=== PATIENT | female | born 1965 | race Caucasian/White ===

== ENCOUNTER → 2018-07-24 09:50 | Outpatient (CLI) | payer BC, SELFPAY ==
[2018-07-24 12:03] LABS: Absolute Neutrophil Count 3.1 X10^3/uL (2.0-7.7); Basophil# 0.02 X10^3/uL; Basophil% 0.4 % (0-1); Eosinophil# 0.11 X10^3/uL; Eosinophils% 2.2 % (0-5); Hematocrit 40.1 % (37-47); Hemoglobin 13.3 g/dl (12.0-15.0); Lymphocyte % 25.7 % (19-41); Mean Corp Hgb Conc 33.2 g/gl (32-36); Mean Corpuscular Hgb 28.8 pg (27.0-32.0); Mean Corpuscular Volume 86.8 fL (81-99); Monocyte# 0.48 X10^3/uL; Monocyte% 9.5 % (0-10); Neutrophil # 3.14 X10^3/uL (2.7-7.7); Neutrophil % 62.2 % (47-70); Platelet Count 181 K/mm3 (150-450); RBC Distribution Width CV 13.1 % (11.6-14.6); RBC Distribution Width SD 40.7 fl (35.1-43.9); Red Blood Count 4.62 M/mm3 (4.2-5.4); White Blood Count 5.1 K/mm3 (4.4-11.0)
[2018-07-24 12:07] LABS: POSITIVE COUNT NO; POSITIVE DIFFERENTIAL NO; POSITIVE MORPHOLOGY NO
[2018-07-24 12:36] LABS: ALB/GLOB Ratio 1.1 RATIO (0.9-2.4); AST(SGOT) 17 U/L (15-37); Alanine Aminotransfer ALT/SGPT 25 U/L (13-56); Alkaline Phosphatase 87 U/L (45-117); Anion Gap 8 (5-15); BUN 19 mg/dL (7-18); BUN/Creat Ratio 26.5 RATIO (10-20); Calcium,Total 9.1 mg/dL (8.5-10.1); Chloride 108 mmol/L (98-107); Creatinine, Serum 0.72 mg/dL (0.55-1.02); EST Glomerular Filtration Rate 91 mL/min (>60); Est Glom Filt Rate - Afr Amer 111 mL/min (>60); Globulin 3.7 g/dL (2.2-4.2); Glucose 89 mg/dL (74-106); Protein, Total 7.7 g/dL (6.4-8.2); Sodium Level 142 mmol/L (136-145); Thyroid Stim Hormone (TSH) 0.49 uIU/mL (0.358-3.74)
== END ==
PROVIDERS: Family Provider Family Medicine; PCP Family Medicine; Visit Provider Family Medicine
DX: R55 Syncope and collapse (principal)
CPT/HCPCS: 36415; 80053; 84443; 85025

== ENCOUNTER 2018-09-07 22:22 | Emergency (ER) | payer BC, SELFPAY ==
[2018-09-07 22:23] VITALS: BP 169/92; PULSE 72; RESP 15; TEMP 36.6; O2SAT 97; BMI 24.0
--- NOTE | 2018-09-07 23:13 | EKG12_ITS ---
Test Reason : DIZZINESS Blood Pressure : / mmHG Vent. Rate : 062 BPM Atrial Rate : 062 BPM P-R Int : 136 ms QRS Dur : 096 ms QT Int : 418 ms P-R-T Axes : 051 056 054 degrees QTc Int : 424 ms Normal sinus rhythm Nonspecific ST abnormality Abnormal ECG Confirmed by LELIA ROWELL, LIATH ([id number]), order editor ROJELIO ESPANA ([id number]) on 09/10/2018 1:39:23 PM Referred By: WILLIAN Confirmed By:LAITH ROWELL MD
--- NOTE | 2018-09-07 23:13 | CT_ITS ---
STUDY: CT BRAIN WITHOUT CONTRAST REASON FOR EXAM: Female, 52 years old. Dizziness. Tunnel vision. History of vertigo. Numbness and tingling in both hands. RADIATION DOSAGE (If Supplied By Facility): CTDIvol = ( 44.99 ) mGy, DLP = ( 745.49 ) mGycm TECHNIQUE: Transaxial CT imaging of the brain was performed without administration of intravenous contrast material. Individualized dose optimization techniques were used for this CT. COMPARISON: None. FINDINGS: Normal soft tissue structures. Normal calvarium. Normal size ventricles and extra-axial spaces for the patient's age. There are areas of decreased attenuation within the white matter tracts of the supratentorial brain, consistent with microvascular disease changes. There are discrete low attenuation foci in the right parietal centrum semiovale, consistent with old lacunar infarctions. Normal basal ganglia and thalami. Normal brainstem. 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 Otherwise normal cerebellum. There is no intracranial hemorrhage. There are no findings of an acute ischemic infarction. Normal visualized paranasal sinuses. CT/Brain/Head without Contrast IMPRESSION: Dandy-Walker malformation. Old lacunar infarctions of right parietal white matter. No demonstrated acute intracranial process. Electronically Signed: Murtaza Chowdary MD at 0:20 EDT , Service support ,
--- NOTE | 2018-09-07 23:16 | ED.DCSUM_ITS ---
- ER Visit Summary Date of Service: 09/07/18 Chief Complaint: [] Near syncope History of Present Illness: The patient is a 52 F presents with near syncopal episode for last couple hours. It comes intermittently last for several minutes. She feels tunnel vision in her lips and fingers feel like they are ti ngling her toes also feel this way. She felt cold and stated that she like she might pass out. She did not however. This happened at rest while watching television. She did not have any vertigo symptoms but she has had vertigo remotely. Nothing was spinning or moving. There is no nausea. Sometimes she feels this way when she drives. She saw her family doctor for this in July and had normal blood work. She had a -24-hour Holter monitor several years ago that was negative per patient. No history of panic attacks. Currently she feels almost normal Physical Examination: Vital signs reviewed General: Well-nourished well-developed Head: Normocephalic atraumatic Eyes: Pupils equal round and reactive to light extraocular movements intact ENT: TMs clear no hemotympanum no trauma Neck: Nontender full range of motion Cardiovascular: Regular rate rhythm no murmurs normal S1-S2 Respiratory: No distress clear to auscultation bilaterally chest nontender Abdomen: Soft nontender nondistended normal bowel sounds no masses Back: Nontender no CVA tenderness Extremities: Nontender active range of motion ?4 extremities no trauma Skin: Normal color no trauma Neuro alert oriented cranial nerves II through XII intact normal strength sensation reflexes Test Results: [] Emergency Department Course and Treatment: [] Patient given IV fluids. Lab work and EKG obtained CT head obtained. CT head shows a Dandy-Walker malformation. The patient was aware of this. There is discrete low attenuation in the left parietal centrum semi-ovale consistent with old lacunar infarcts. Patient was not aware of this. EKG showed sinus at 62 without ischemia. Old T wave inversion V2. Troponin negative. CBC chemistry normal except glucose 120. Patient felt better after IV fluids. She having near syncopal episode and I do not think she needs to be admitted for this. I feel she can follow-up. She may need a new MRI to evaluate her Dandy-Walker malformation. This could be the cause of her symptoms. She had old lacunar infarct noted. She was unaware of this. It is likely chronic subacute problem. This also could be contributing. I do not think she needs admitted. NIH is 0. No new stroke symptoms. Will follow-up as an outpatient. 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 It may contain incorrect words, spelling, and punctuation that were not noted in review of the chart prior to signing ED Disposition - Plan for ED Patient: Chief Complaint: Dizziness Referrals: Shyanne Chavez MD [Primary Care Provider] -
[2018-09-07 23:54] LABS: Absolute Lymphocyte Count 1.57 X10^3/ul (0.83-4.51); Absolute Neutrophil Count 4.2 X10^3/uL (2.0-7.7); Basophil# 0.02 X10^3/uL; Basophil% 0.3 % (0-1); Eosinophils% 1.6 % (0-5); Hematocrit 38.3 % (37-47); Hemoglobin 13.5 g/dl (12.0-15.0); Lymphocyte # 1.57 X10^3/ul (4.0); Lymphocyte % 24.4 % (19-41); Mean Corp Hgb Conc 35.2 g/gl (32-36); Mean Corpuscular Hgb 29.9 pg (27.0-32.0); Mean Corpuscular Volume 84.7 fL (81-99); Mean Platelet Vol. 10.2 fl (6.2-12.0); Monocyte# 0.56 X10^3/uL; Monocyte% 8.7 % (0-10); Neutrophil # 4.17 X10^3/uL (2.7-7.7); Neutrophil % 64.8 % (47-70); Platelet Count 187 K/mm3 (150-450); RBC Distribution Width CV 12.6 % (11.6-14.6); RBC Distribution Width SD 38.1 fl (35.1-43.9); Red Blood Count 4.52 M/mm3 (4.2-5.4); White Blood Count 6.4 K/mm3 (4.4-11.0)
[2018-09-07 23:57] LABS: POSITIVE COUNT NO; POSITIVE DIFFERENTIAL NO; POSITIVE MORPHOLOGY NO
[2018-09-08 00:11] LABS: Anion Gap 9 (5-15); BUN 17 mg/dL (7-18); BUN/Creat Ratio 21.9 RATIO (10-20); Calcium,Total 9.8 mg/dL (8.5-10.1); Chloride 106 mmol/L (98-107); Creatinine, Serum 0.78 mg/dL (0.55-1.02); EST Glomerular Filtration Rate 83 mL/min (>60); Est Glom Filt Rate - Afr Amer 101 mL/min (>60); Estimated Creatinine Clearance 71.38 ml/min; Glucose 120 mg/dL (74-106); Potassium 3.7 mmol/L (3.5-5.1); Sodium Level 142 mmol/L (136-145)
--- NOTE | 2018-09-08 00:48 | ED.DEP ---
ED Disposition - Plan for ED Patient: Disposition: Home or Assisted Living Chief Complaint: Dizziness Instructions: ED Near Syncope Unkn Referrals: Shyanne Chavez MD [Primary Care Provider] -
[2018-09-08 00:51] VITALS: BP 129/95; PULSE 72; RESP 14; O2SAT 95
== END 2018-09-08 00:52 | disposition home or self-care (01) ==
PROVIDERS: Emergency Provider Emergency Medicine; Family Provider Family Medicine; PCP Family Medicine
DX: R55 Syncope and collapse (principal); Q03.1 Atresia of foramina of Magendie and Luschka; Z86.73 Personal history of transient ischemic attack (TIA), and cerebral infarction without residual deficits
CPT/HCPCS: 70450; 80048; 84484; 85025; 93005; 96360; 99284; J7030; J7040

== ENCOUNTER → 2018-10-13 07:31 | Outpatient (CLI) | payer BC, SELFPAY ==
--- NOTE | 2018-10-13 07:33 | ECHOD_ITS ---
Reason For Study: SYNCOPE Procedure This was a 2D Doppler, Color Flow transthoracic echocardiogram. Exam performed in department. Left Ventricle Normal LV size. Left ventricular systolic function is normal. The estimated ejection fraction is 55 %. No evidence for diastolic dysfunction. No regional wall motion abnormalities noted. Right Ventricle Normal RV size. Normal systolic function. Atria Normal left atrium. Normal right atrium. Bubble contrast study negative for right to left interatrial shunt. Mitral Valve Normal mitral valve. Mild (1+) eccentric mitral valve insufficiency. Tricuspid Valve Normal tricuspid valve. Mild tricuspid valve insufficiency. Pulmonary artery systolic pressure is 30 mmHg. Aortic Valve Normal aortic valve. Trisinus/trileaflet aortic valve. Pulmonic Valve Normal pulmonic valve. Great Vessels Normal aortic root. The pulmonary artery is normal size. Normal inferior vena cava. Pericardium/Pleural No pericardial effusion. Medication 22 gauge I.V. with prn adaptor inserted into right arm. Performed a rapid injection of agitated mix of 9 cc saline and 1cc air to assess for atrial septal defect. MMode/2D Measurements & Calculations LVIDd: 4.3 cm IVSd: 0.58 cm Ao root diam: 2.7 cm LVIDs: 3.0 cm LVPWd: 0.63 cm RVDd: 3.8 cm FS: 30.3 % LAV(MOD-bp): 41.1 ml LVAd ap4: 27.3 cm2 SV(MOD-sp4): 48.2 ml LAV(MOD-bp) Indexed: 25.6 ml/m2 EDV(MOD-sp4): 77.4 ml LAV(MOD-sp2): 30.2 ml EDV(sp4-el): 81.1 ml LAV(MOD-sp4): 52.7 ml LVAs ap4: 15.0 cm2 ESV(MOD-sp4): 29.2 ml ESV(sp4-el): 30.7 ml EF(MOD-sp4): 62.3 % EF(sp4-el): 62.1 % SV(sp4-el): 50.3 ml LA A4 area: 17.4 cm2 LA dimension(2D): 2.7 cm RA A4 area: 12.0 cm2 Time Measurements MV dec time: 0.23 sec Doppler Measurements & Calculations MV E max mynor: 101.5 cm/sec Lat Peak E' Mynor: 9.8 cm/sec Med Peak E' Mynor: 9.7 cm/sec MV A max mynor: 74.7 cm/sec E/E' lat: 10.3 E/E' med: 10.5 MV E/A: 1.4 Ao V2 max: 139.1 cm/sec LV V1 max: 110.1 cm/sec PA V2 max: 80.7 cm/sec Ao max P.7 mmHg LV V1 max P.8 mmHg TR max mynor: 250.5 cm/sec TR max P.1 mmHg Interpretation Summary Normal LV size. Left ventricular systolic function is normal. The estimated ejection fraction is 55 %. No evidence for diastolic dysfunction. Mild (1+) eccentric mitral valve insufficiency. Bubble contrast study negative for right to left interatrial shunt. Ordering Physician: Scott Swanson Referring Physician: AZIZA FARLEY Performed By: Angela Mackenzie, RDCS, RVT
[2018-10-13 07:51] LABS: Absolute Lymphocyte Count 1.44 X10^3/ul (0.83-4.51); Absolute Neutrophil Count 2.8 X10^3/uL (2.0-7.7); Basophil# 0.03 X10^3/uL; Basophil% 0.6 % (0-1); Eosinophil# 0.12 X10^3/uL; Eosinophils% 2.5 % (0-5); Hematocrit 39.8 % (37-47); Hemoglobin 13.3 g/dl (12.0-15.0); Lymphocyte # 1.44 X10^3/ul (4.0); Lymphocyte % 29.9 % (19-41); Mean Corp Hgb Conc 33.4 g/gl (32-36); Mean Corpuscular Hgb 29.2 pg (27.0-32.0); Mean Corpuscular Volume 87.3 fL (81-99); Mean Platelet Vol. 9.9 fl (6.2-12.0); Monocyte# 0.46 X10^3/uL; Monocyte% 9.6 % (0-10); Neutrophil # 2.75 X10^3/uL (2.7-7.7); Neutrophil % 57.2 % (47-70); Platelet Count 171 K/mm3 (150-450); RBC Distribution Width SD 40.1 fl (35.1-43.9); Red Blood Count 4.56 M/mm3 (4.2-5.4); White Blood Count 4.8 K/mm3 (4.4-11.0)
[2018-10-13 07:52] LABS: POSITIVE COUNT NO; POSITIVE DIFFERENTIAL NO; POSITIVE MORPHOLOGY NO
[2018-10-13 08:12] LABS: Anion Gap 6 (5-15); BUN 13 mg/dL (7-18); BUN/Creat Ratio 17.8 RATIO (10-20); Calcium,Total 9.1 mg/dL (8.5-10.1); Chloride 108 mmol/L (98-107); Creatinine, Serum 0.73 mg/dL (0.55-1.02); EST Glomerular Filtration Rate 89 mL/min (>60); Est Glom Filt Rate - Afr Amer 108 mL/min (>60); Glucose 84 mg/dL (74-106); Sodium Level 144 mmol/L (136-145)
[2018-10-13 08:23] LABS: Pregnancy, Serum, hCG Quali. NEGATIVE Negative (0-9 Nonpreg)
--- NOTE | 2018-10-15 08:48 | PCM.TILTTABL ---
- Summary Pre Test Resting HR: 96 Pre Test Resting BP: 166/89 Minimum Test HR: 71 Maximum Test HR: 96 Minimum Test BP: 126/79 Maximum Test BP: 166/89 Reason for Test Termination: Syncope - The patient underwent a head up tilt table test. Initial blood pressure 162/70 6 m of mercury with a heart rate of 78 bpm. The patient was then placed in a 70 degree head up tilt table position. Continuous EKG, blood pressure and heart rate monitoring was performed. Patient experienced tingling and lightheadedness with no change in blood pressure or heart rate. During recovery the patient also maintained stable blood pressure and heart rate. No other changes were made. Physician Tilt Table Report - Patient's Physicians Primary Care Physician: Shyanne Chavez Indications/Diagnosis: Procedure Comments: Summary: Negative head up tilt table test with no evidence of syncope.
[2018-10-15 08:54] VITALS: BP 126/79; BP 166/89
== END ==
PROVIDERS: Family Provider Family Medicine; PCP Family Medicine; Referring Provider Internal Medicine Cardiovascular Disease; Visit Provider Internal Medicine Cardiovascular Disease
DX: R55 Syncope and collapse (principal); Q03.1 Atresia of foramina of Magendie and Luschka; Z86.73 Personal history of transient ischemic attack (TIA), and cerebral infarction without residual deficits
CPT/HCPCS: 36415; 80048; 84703; 85025; 93306; 93660; J7040; A4216

== ENCOUNTER → 2020-11-20 09:51 | Outpatient (CLI) | payer BC, SELFPAY ==
--- NOTE | 2020-11-20 09:56 | RAD_ITS ---
STUDY: X-RAY - RIGHT SHOULDER REASON FOR EXAM: Female, 55 years old. Right shoulder pain, no injury TECHNIQUE: 4 view(s) of the shoulder. COMPARISON: None. FINDINGS: Normal glenohumeral articulation. Normal acromioclavicular joint. Normal acromion. Normal humeral head and visualized proximal humerus. The soft tissue structures are unremarkable. Normal visualized pulmonary apex. RAD/Shoulder min 2 Views IMPRESSION: Normal x-ray examination of the shoulder. Electronically Signed: Dennis Arellano, at 15:46 EST , Service support ,
== END ==
PROVIDERS: PCP Family Medicine; Referring Provider Family Medicine; Visit Provider Family Medicine
DX: M25.511 Pain in right shoulder (principal)
CPT/HCPCS: 73030

== ENCOUNTER → 2021-02-12 07:32 | Outpatient (CLI) | payer BC, SELFPAY ==
[2021-02-12 10:26] LABS: ALB/GLOB Ratio 1.1 RATIO (0.9-2.4); AST(SGOT) 16 U/L (15-37); Alanine Aminotransfer ALT/SGPT 24 U/L (13-56); Alkaline Phosphatase 90 U/L (45-117); Anion Gap 7 (5-15); BUN 11 mg/dL (7-18); BUN/Creat Ratio 13.7 RATIO (10-20); Calcium,Total 9.3 mg/dL (8.5-10.1); Chloride 113 mmol/L (98-107); EST Glomerular Filtration Rate 80 mL/min (>60); Est Glom Filt Rate - Afr Amer 96 mL/min (>60); Globulin 3.6 g/dL (2.2-4.2); Glucose 76 mg/dL (74-106); Potassium 3.5 mmol/L (3.5-5.1); Protein, Total 7.6 g/dL (6.4-8.2); Sodium Level 145 mmol/L (136-145)
[2021-02-14 17:29] LABS: Topiramate 7.7 ug/mL (2.0-25.0)
== END ==
PROVIDERS: PCP Family Medicine; Referring Provider Psychiatry & Neurology Neurology; Visit Provider Psychiatry & Neurology Neurology
DX: G40.109 Localization-related (focal) (partial) symptomatic epilepsy and epileptic syndromes with simple partial seizures, not intractable, without status epilepticus (principal)
CPT/HCPCS: 36415; 80053; 80201

== ENCOUNTER → 2022-07-17 | Outpatient (CLI) | payer OTHER, SELFPAY ==
--- NOTE | 2022-07-17 14:33 | VDLE_ITS ---
Reason For Study: Pain RIGHT LEFT CFV is compressible, spontaneous, phasic, GSV is normal. competent and demonstrates normal CFV is compressible, spontaneous, phasic, augmentation. competent, and demonstrates normal Procedure augmentation. This is a venous duplex using B-mode, color FV is compressible, spontaneous, phasic, flow and spectral Doppler. competent and demonstrates normal Exam performed in department. augmentation. A preliminary report was called and/or faxed POP V is compressible, spontaneous, phasic, to Scott. competent and demonstrates normal augmentation. T/P Trunk is compressible. PTV is compressible. LT PerV is compressible. VL/Venous Duplex US, Unilateral Interpretation Summary There is no evidence of left lower extremity deep vein thrombosis. Left great s aphenous vein appears patent and compressible segmentally. Normal flow patterns right common femoral vein Ordering Physician: Shyanne Chavez Referring Physician: Shyanne Chavez Performed By: Keturah Franco RVT
== END | disposition home or self-care (01) ==
LOC: CVS 14:31
PROVIDERS: PCP Family Medicine; Referring Provider Family Medicine; Visit Provider Family Medicine
DX: M79.605 Pain in left leg (principal)
CPT/HCPCS: 93971

== ENCOUNTER → 2023-11-25 | Outpatient (CLI) | payer OTHER, SELFPAY ==
[2023-11-25 15:24] LABS: ALB/GLOB Ratio 1.1 RATIO (0.9-2.4); AST(SGOT) 18 U/L (15-37); Alanine Aminotransfer ALT/SGPT 20 U/L (13-56); Albumin, Serum 3.9 g/dL (3.2-5.0); Alkaline Phosphatase 97 U/L (45-117); Anion Gap 5 (5-15); BUN 12 mg/dL (7-18); BUN/Creat Ratio 17.1 RATIO (10-20); Calcium,Total 9.1 mg/dL (8.5-10.1); Chloride 115 mmol/L (98-107); EST Glomerular Filtration Rate 92 mL/min (>60); Est Glom Filt Rate - Afr Amer 111 mL/min (>60); Globulin 3.4 g/dL (2.2-4.2); Glucose 89 mg/dL (74-106); Potassium 3.6 mmol/L (3.5-5.1); Protein, Total 7.3 g/dL (6.4-8.2); Sodium Level 144 mmol/L (136-145)
[2023-11-28 06:08] LABS: Topiramate 10.2 ug/mL (2.0-25.0)
== END | disposition home or self-care (01) ==
LOC: MTLAB 12:47
PROVIDERS: PCP Family Medicine; Referring Provider Psychiatry & Neurology Neurology; Visit Provider Psychiatry & Neurology Neurology
DX: G40.109 Localization-related (focal) (partial) symptomatic epilepsy and epileptic syndromes with simple partial seizures, not intractable, without status epilepticus (principal)
CPT/HCPCS: 36415; 80053; 80201

== ENCOUNTER → 2024-02-24 | Outpatient (CLI) | payer OTHER, SELFPAY ==
[2024-02-24 17:54] LABS: Absolute Lymphocyte Count 1.76 X10^3/uL (0.83-4.51); Absolute Neutrophil Count 1.7 X10^3/uL (2.0-7.7); Basophil# 0.01 X10^3/uL; Basophil% 0.3 % (0-1); Eosinophil# 0.06 X10^3/uL; Eosinophils% 1.6 % (0-5); Hemoglobin 12.9 g/dL (12.0-15.0); Lymphocyte # 1.76 X10^3/ul (0.83-4.51); Lymphocyte % 46.3 % (19-41); Mean Corp Hgb Conc 33.1 g/dL (32-36); Mean Corpuscular Hgb 28.5 pg (27.0-32.0); Mean Corpuscular Volume 86.3 fL (81-99); Mean Platelet Vol. 10.5 fl (6.2-12.0); Monocyte# 0.31 X10^3/uL; Monocyte% 8.2 % (0-10); NRBC Flagged by Analyzer 0 % (0-5); Neutrophil # 1.65 X10^3/uL (2.7-7.7); Neutrophil % 43.3 % (47-70); Platelet Count 163 K/mm3 (150-450); RBC Distribution Width CV 12.6 % (11.6-14.6); RBC Distribution Width SD 39.8 fl (35.1-43.9); Red Blood Count 4.52 M/mm3 (4.2-5.4); White Blood Count 3.8 K/mm3 (4.4-11.0)
[2024-02-24 18:01] LABS: Erythrocyte Sedimentation Rate 6 mm/hr (0-30)
[2024-02-24 18:12] LABS: Hemoglobin A1c 5.1 % (3.8-5.6)
[2024-02-24 18:20] LABS: ALB/GLOB Ratio 1.1 RATIO (0.9-2.4); AST(SGOT) 20 U/L (15-37); Alanine Aminotransfer ALT/SGPT 25 U/L (13-56); Albumin, Serum 3.9 g/dL (3.2-5.0); Alkaline Phosphatase 99 U/L (45-117); Anion Gap 7 (5-15); BUN 13 mg/dL (7-18); BUN/Creat Ratio 18.5 RATIO (10-20); Calcium,Total 8.7 mg/dL (8.5-10.1); Chloride 108 mmol/L (98-107); Cholesterol 202 mg/dL (200); EST Glomerular Filtration Rate 92 mL/min (>60); Est Glom Filt Rate - Afr Amer 111 mL/min (>60); Globulin 3.4 g/dL (2.2-4.2); Glucose 90 mg/dL (74-106); High Density Lipoprotein 65 mg/dL; Potassium 3.3 mmol/L (3.5-5.1); Protein, Total 7.3 g/dL (6.4-8.2); Sodium Level 138 mmol/L (136-145); Thyroid Stim Hormone (TSH) 0.53 uIU/mL (0.358-3.74); Triglycerides 62 mg/dL; Very Low Density Lipoprotein 12 mg/dL (5-40)
== END | disposition home or self-care (01) ==
LOC: MFPLAB 16:42
PROVIDERS: PCP Family Medicine; Visit Provider Family Medicine
DX: Z13.220 Encounter for screening for lipoid disorders (principal); R53.81 Other malaise; R53.83 Other fatigue
CPT/HCPCS: 36415; 80053; 80061; 83036; 84443; 85025; 85652

== ENCOUNTER → 2025-09-27 | Outpatient (CLI) | payer OTHER, SELFPAY ==
[2025-09-27 15:33] LABS: Anion Gap 9 (5-15); BUN 13 mg/dL (4-19); BUN/Creat Ratio 15.8 RATIO (10-20); Calcium,Total 9.6 mg/dL (7.6-11.0); Carbon Dioxide 22.3 mmol/L (21.0-32.0); Chloride 110 mmol/L (98-108); Cholesterol 236 mg/dL (<=200); Glucose 92 mg/dL (70-99); Low Density Lipoprotein Calc. 151 mg/dL; Potassium 4.5 mmol/L (3.3-5.1); Triglycerides 64 mg/dL; Very Low Density Lipoprotein 13 mg/dL (5-40); cholesterol:hdl ratio screen 3.18
== END | disposition home or self-care (01) ==
LOC: MFPLAB 12:00
PROVIDERS: PCP Family Medicine; Visit Provider Nurse Practitioner Family
DX: Z13.1 Encounter for screening for diabetes mellitus (principal); Z13.220 Encounter for screening for lipoid disorders
CPT/HCPCS: 36415; 80048; 80061

== ENCOUNTER → 2025-10-24 | Outpatient (CLI) | payer OTHER, SELFPAY ==
--- NOTE | 2025-10-24 06:53 | CT_ITS ---
PROCEDURE: LIMITED CHEST CT CARDIAC ONLY 10/24/2025 REASON FOR EXAM: HYPERLIPIDEMIA TECHNIQUE: Procedure Code: [id number] Modality: CT Procedure: LIMITED CHEST CT CARDIAC ONLY Coronal and Sagittal reconstruction series were provided. One or more dose reduction techniques were used (e.g., Automated exposure control, adjustment of the mA and/or kV according to patient size, use of iterative reconstruction technique). RADIATION DOSE SUMMARY: CTDlvol: 12.19 mGy DLP: 243.79 mGycm COMPARISON: None FINDINGS: Atherosclerotic plaque formation of the aortic arch and descending thoracic aorta. Mild degree of coronary artery calcification. The heart is nonenlarged. Minimal right-sided pericardial thickening along its inferior aspect. Calcified granuloma in the posterior medial segment of the right lower lobe as well as calcified right hilar lymph nodes. CT/Limited Chest CT Cardiac Only IMPRESSION: Coronary artery calcification. Calcified right hilar lymph nodes as well as a calcified granuloma in the right lower lobe. Reading Location: [place] [id number]
--- OUTSIDE RECORDS SUMMARY | 2025-10-24 07:01 | XMS RPT_ITS | CCD ---
Author Organization [facility] Care Team Providers Care Oil Distributor Tender Name Role Phone Dr. Shyanne Chavez Primary Care Provider Dr. Julio Aguirre Attending Provider Pcp, No Primary Care Provider Unavailabl e Unavailable Primary Care Provider UnavailShyanne Julian Primary Care Provider Unavailable Primary Care Provider Unavailabl e Pcp RETAIL ACCOUNT REPRESENTATIVE, No Primary Care Provider UnavailShyanne Julian Primary Care Provider SHYANNE CHAVEZ Primary Care Unavailable SUZETTE WOLFE Attending Unavailable KARI WEST Referring Unavailable KARI WEST Attending Unavailable SHYANNE CHAVEZ Primary Care Unavailable Shyanne Chavez Primary Care Provider [phone] JAZZMINE CHRISTENSEN Attending Unavailable SHYANNE CHAVEZ Primary Care Unavailable Viky STOPPER SETTER, Sena Attending Unavailable Shyanne Chavez Primary Care Unavailable Viky STOPPER SETTER, Sena Attending Unavailable Viky STOPPER SETTER, Sena Referring Unavailable Eugene Terry Primary Care Unavailable Medications Current Medications Medication Drug Class(es) Dates Sig (Normalized) Sig (Original) ascorbic acid 1000 mg oral tablet (10 sources) Vitamin C take 1 tablet by sandra th once daily Ascorbic Acid (vitamin C) 1000 MG tablet Take 1,000 mg by mouth daily. Active ascorbic acid, v itamin C, (VITAMIN C) 250 mg tablet Take 500 mg by mouth. Active Comment on above: Take 500 mg by mouth . benzonatate 100 mg oral capsule (4 sources) Non-narcotic Antitussive Start: 03-22-20 25 take 1 capsule by mouth every eight hours as needed benzonatate (TESSALON PERLE) 100 mg capsule Take 1 capsule by mouth three times a day as needed. 21 capsule 03/22/2025 Active doxycycline hyclate 100 mg oral tablet (1 source) Tetracycline-class Drug Start: 04-12-20 End: 04-19-20 take 1 tablet by mouth twice daily doxycycline (VIBRA-TABS) 100 mg tablet Take 1 tablet by mouth two times a day for 7 days. 14 tablet 04/12/2025 04/19/2025 Active eletriptan 40 mg oral tablet (3 sources) Serotonin-1b and Serotonin-1d Receptor Agonist Start: 09-15-20 take 1 tablet by mouth once Eletriptan (Relpax) 40 mg tablet Active 40 MG PO ONCE September 15, 2018 12:00am ibuprofen 200 mg oral tablet (12 sources) Nonsteroidal Anti-inflammatory Drug Start: 09-16-20 ibuprofen (MOTRIN) 200 mg tablet Take by mouth. 09/16/2018 Active Comment on above: Take by mouth. Multiple Vitamins-Minerals (multivitamin with minerals) tablet (1 source) take 1 tablet by mouth once daily Multiple Vitamins-Minerals (multivitamin with minerals) tablet Take 1 tablet by mouth daily. Active Multivitamin preparation (3 sources) Start: 09-15-20 take 1 tablet by mouth once daily Multivitamin Active 1 TABLET PO DAILY September 14, 2018 11:00pm Start: 09-15-2018 take 1 tablet by sandra th once daily Multivitamin Active 1 TABLET PO DAILY September 15, 2018 12:00am mv-min/folic/vit K/lycop/coQ 10 (DAILY MULTIVITAMIN ORAL) (9 sources) Start: 09-15-2018 mv-min/folic/v it K/lycop/coQ10 (DAILY MULTIVITAMIN ORAL) Take by mouth. 09/15/2018 Active Start: 09-15-2018 mv-min/folic/v it K/lycop/coQ10 (DAILY MULTIVITAMIN ORAL) Take by mouth. 0 09/15/2018 Active Comment on above: Take by mouth. Mx-Gj-Ylcl-Iuypi-Vzm-Kng- Hc124 (Airborne (Ascorbate Sodium)) 250-1.25 mg lozenge (3 sources) Start: 09-16-2018 Vc-He-Jrpg-Asb na-Glu-Kalli- Hc124 (Airborne (Ascorbate Sodium)) 250-1.25 mg lozenge Active MG MUCOUS MEM September 15, 2018 11:00pm Start: 09-16-2018 Hd-Bj-Ugqo-Asb jf-Lud-Wqa-Hc124 (Airborne (Ascorbate Sodium)) 250-1.25 mg lozenge Active MG MUCOUS MEM September 16, 2018 12:00am rizatriptan 10 mg disintegrating oral tablet (4 sources) Serotonin-1b and Serotonin-1d Receptor Agonist Start: 08-11-2024 End: 10-11-2025 rizatriptan WIRELESS ARCHITECT (Maxalt-WIRELESS ARCHITECT) 10 MG disintegrating tablet Indications: Migraine without aura and without status migrainosus, not intractable Take 1 tablet (10 mg) by mouth Once as needed for migraine. May repeat in 2 hours if unresolved. Do not exceed 20 mg in 24 hours. 18 tablet 6 08/12/2025 10/11/2025 Active SUMAtriptan 100 mg oral tablet (12 sources) Serotonin-1b and Serotonin-1d Receptor Agonist Start: 09-15-2018 SUMAtriptan (IMITREX ) 100 mg tablet Take by mouth. 09/15/2018 Active Start: 09-15-2018 take 100 mg by mouth once Debbie triptan Succinate Active 100 MG PO ONCE September 15, 2018 12:00am Comment on above: Take by mouth. terbinafine hydrochloride 10 mg/ml topical cream (1 source) Allylamine Antifungal Start: 4 End: 4 terbinafine HCl (LAMISIL AT) 1 % cream Indications: Rash Apply to affected area two times a day for 14 days. 12 g 2 05/30/2024 06/13/2024 Active topiramate 100 mg oral tablet (18 sources) Start: 2 End: 5 take 1 tablet by mouth twice daily topiramate (Topamax) 100 MG tablet Indications: Focal epilepsy (CMS/HCC) (HCC) , Migraine without aura and without status migrainosus, not intractable Take 1 tablet (100 mg) by mouth 2 times daily. 120 tablet 6 08/12/2025 10/11/2025 Active Problems Problem Classification Problem Date Documented Da te Episodic/Chronic Disorders of lipid metabolism (1 source) Hyperlipidemia, unspecified; Translations: [Hyperlipidemia, unspecified] Onset: 10-03-2025 Chronic Epilepsy; convulsions (6 sources) Localization-relate d epilepsy; Translations: [Localization-relat ed (focal) (partial) symptomatic epilepsy and epileptic syndromes with simple partial seizures, not intractable, without status epilepticus] Onset: 04-09-2025 08-25-2023 Chronic Headache; including migraine (5 sources) Migraine without aura, not refractory ; Translations: [Migraine without aura, not intractable, without status migrainosus] Onset: 04-09-2025 08-11-2024 Chronic 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; 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] 08-25-2023 Chronic Other lower respiratory disease (1 source) Rib pain; Translations: [Pleurodynia] Episodic Other lower respiratory disease (1 source) Cough; Translations: [Acute cough] Episodic Other lower respiratory disease (3 sources) Cough; Translations: [Acute cough] 04-09-2023 Episodic Other screening for suspected conditions (not mental disorders or infectious disease) (1 source) Encounter for screening for diabetes mellitus; Translations: [Encounter for screening for diabetes mellitus] Onset: 10-03-2025 Episodic Other skin disorders (1 source) Eruption; Translations: [Rash and other nonspecific skin eruption] 05-30-2024 Episodic Other upper respiratory infections (2 sources) Acute upper respiratory infection; Translations: [Acute upper respiratory infection, unspecified] Onset: 03-22-2025 03-22-2025 Episodic Spondylosis; intervertebral disc disorders; other back problems (1 source) Acute low back pain; Translations: [Acute midline low back pain without sciatica] Episodic Syncope (3 sources) Near syncope; Translations: [Syncope and collapse] 09-16-2018 Episodic Unclassified (1 source) Acute cough; Translations: [Acute cough] Onset: 04-12-2025 Results Test Name Value Interpretation Reference Range Facility Basic Metabolic Profile (BMP )on 09-27-2025 BUN/CRE 15.8 RATIO Normal 09-19 [facility] Comment on above: Order Comment: Order Date: 09/27/25 Order Info: 0667-1 - BMP Order Info: [id number] - LIPID Performed By: #### L 500.4100, L500.2500 #### [facility] [place], [address] Calcium [Mass/Vol] 9.6 mg/dL Normal 7.6-11.0 [facility] Comment on above: Order Comment: Order Date: 09/27/25 Order Info: 666-12 - BMP Order Info: - LIPID Performed By: #### L 500.4100, L500.2500 #### [facility] [address] [place], [address] Chloride [Moles/Vol] 110 mmol/L High 98-108 [facility] Comment on above: Order Comment: Order Date: 09/27/25 Order Info: 666-12 - BMP Order Info: - LIPID Performed By: #### L 500.4100, L500.2500 #### [facility] [address] [place], [address] CO2 [Moles/Vol] 22.3 mmol/L Normal 21.0-32.0 [facility] Comment on above: Order Comment: Order Date: 09/27/25 Order Info: 666-12 - BMP Order Info: [id number] - LIPID Performed By: #### L 500.4100, L500.2500 #### [facility] [address] [place], [address] Creatinine [Mass/Vol] 0.79 mg/dL Normal 0.70-1.20 [facility] Comment on above: Order Comment: Order Date: 09/27/25 Order Info: 666-12 - BMP Order Info: [id number] - LIPID Performed By: #### L 500.4100, L500.2500 #### [facility] [address] [place], [address] GAP 9 Normal 5-15 [facility] Comment on above: Order Comment: Order Date: 09/27/25 Order Info: 666-12 - BMP Order Info: [id number] - LIPID Performed By: #### L 500.4100, L500.2500 #### [facility] [address] [place], [address] GFR/1.73 sq M.predicted among non-blacks MDRD (S/P/Bld) [Vol rate/Area] 87 mL/min/{1.73_m2} Normal >60 [facility] Comment on above: Order Comment: Order Date: 09/27/25 Order Info: 0667-1 - BMP Order Info: [id number] - LIPID Result Comment: mL/m in/1.73m2 CKD-EPI Creatinine Equation (2020) Performed By: #### L 500.4100, L500.2500 #### [facility] [address] [place], [address] Glucose [Mass/Vol] 92 mg/dL Normal 70-99 [facility] Comment on above: Order Comment: Order Date: 09/27/25 Order Info: 0667- - BMP Order Info: [id number] - LIPID Performed By: #### L 500.4100, L500.2500 #### [facility] [address] [place], [address] Potassium [Moles/Vol] 4.5 mmol/L Normal 3.3-5.1 [facility] Comment on above: Order Comment: Order Date: 09/27/25 Order Info: 0667- - BMP Order Info: [id number] - LIPID Performed By: #### L 500.4100, L500.2500 #### [facility] [address] [place], [address] Sodium [Moles/Vol] 141 mmol/L Normal 133-145 [facility] Comment on above: Order Comment: Order Date: 09/27/25 Order Info: 0667-1 - BMP Order Info: [id number] - LIPID Performed By: #### L 500.4100, L500.2500 #### [facility] [address] [place], [address] Urea nitrogen [Mass/Vol] 13 mg/dL Normal 4-19 [facility] Comment on above: Order Comment: Order Date: 09/27/25 Order Info: 0667-1 - BMP Order Info: [id number] - LIPID Performed By: #### L 500.4100, L500.2500 #### [facility] [address] [place], [address] Lipid Profileon 09-27-2025 CHOL:HDL 3.18 Normal [facility] Comment on above: Order Comment: Order Date: 09/27/25 Order Info: 666-12 - BMP Order Info: [id number] - LIPID Performed By: #### L 500.4100, L500.2500 #### [facility] [address] [place], [address] Cholesterol [Mass/Vol] 236 mg/dL High <=200 [facility] Comment on above: Order Comment: Order Date: 09/27/25 Order Info: 666-12 - [facility] Order Info: [id number] - LIPID Result Comment: Chol esterol level, Desirable <200 mg/dL Borderline high cholesterol 200-239 mg/dL High cholesterol >=240 mg/dL Recommendations of the NCEP Adult Treatment Panel for the following risk-cutoff thresholds for the [place] population. Performed By: #### L 500.4100, L500.2500 #### [facility] [address] [place], [address] Cholesterol in HDL [Mass/Vol] 74 mg/dL Normal [facility] Comment on above: Order Comment: Order Date: 09/27/25 Order Info: 06 - [facility] Order Info: [id number] - LIPID Result Comment: Alicia onal Cholesterol Education Program (NCEP) guidelines: <40 mg/dL: Low HDL-cholesterol (major risk factor for CHD) >= 60 mg/dL: High HDL-cholesterol (negative risk factor for CHD) HDL-cholesterol is affected by a number of factors, e.g. smoking, exercise, hormones, sex and age. Performed By: #### L 500.4100, L500.2500 #### [facility] [address] [place], [address] Cholesterol in LDL [Mass/Vol] 151 mg/dL Normal [facility] Comment on above: Order Comment: Order Date: 09/27/25 Order Info: 0667-1 - BMP Order Info: [id number] - LIPID Result Comment: Bord ulbnqa=312-281 mg/dL Higher Ecim=591 mg/dL or greater Leslie Equation 2020 for LDL-C Performed By: #### L 500.4100, L500.2500 #### [facility] [address] [place], [address] Cholesterol in VLDL [Mass/Vol] 13 mg/dL Normal 5-40 [facility] Comment on above: Order Comment: Order Date: 09/27/25 Order Info: 0667-1 - BMP Order Info: [id number] - LIPID Performed By: #### L 500.4100, L500.2500 #### [facility] [address] [place], [address] Triglyceride [Mass/Vol] 64 mg/dL Normal [facility] Comment on above: Order Comment: Order Date: 09/27/25 Order Info: 0667-1 - BMP Order Info: [id number] - LIPID Result Comment: The drugs N-Acetylcysteine and Metamizole may falsely depress this assay. Normal range: <150 mg/dL Borderline High: 150-199 mg/dL High: 200-499 mg/dL Very High: >500 mg/dL Performed By: #### L 500.4100, L500.2500 #### [facility] [address] [place], [address] Office Visiton 08-12-2025 Follow-up visit [id number] Nelson Conner 1965 F Date Provider Department Center 08/12/2025 [id number] CHRISTENSEN [facility] None Family History Family Status - Relation Status Age at Mother Notes: accident Father Alive Level of Service:00924 MO OFFICE/OUTPATIENT ESTABLISHED LOW MDM 20 MIN Reason for Visit and Comments: Follow-up [938146] Seizures [97] Normal [facility] Progress Noteon 08-12-2025 Progress Note [facility] [address] [facility] [address] Dept: [phone] Dept Loc: [phone] Visit type: Established Patient Reason for Visit: Follow-up and Seizures Assessment and Plan 1. Focal epilepsy (CMS/HCC) (HCC) 2. Migraine without aura and without status migrainosus, not intractable Subjective HPI: She denies seizures. She has not had a seizure for years. She is tolerating the topiramate. She reports that migraine frequency is very low and many times she has such mild headaches that she just takes Motrin and that is good enough but the rizatriptan. REVIEW OF SYSTEMS: Review of Systems Constitutional: Negative for appetite change, chills, diaphoresis, fever and unexpected weight change. HENT: Negative for dental problem and mouth sores. Eyes: Negative for discharge and itching. Respiratory: Negative for chest tightness. Cardiovascular: Negative for chest pain and leg swelling. Gastrointestinal: Negative for rectal pain and vomiting. Endocrine: Negative for polydipsia, polyphagia and polyuria. Genitourinary: Negative for decreased urine volume, flank pain and genital sores. Musculoskeletal: Negative for arthralgias. Skin: Negative for color change. Allergic/Immunologic: Negative for food allergies and immunocompromised state. Neurological: Positive for headaches. Negative for seizures. Hematological: Negative for adenopathy. Does not bruise/bleed easily. Psychiatric/Behaviora l: Negative for agitation, behavioral problems, decreased concentration, sleep disturbance and suicidal ideas. No Known Allergies Current Outpatient Medications: Ascorbic Acid (vitamin C) 1000 MG tablet, Take 1,000 mg by mouth daily., Disp: , Rfl: Multiple Vitamins-Minerals (multivitamin with minerals) tablet, Take 1 tablet by mouth daily., Disp: , Rfl: rizatriptan WIRELESS ARCHITECT (Maxalt-WIRELESS ARCHITECT) 10 MG disintegrating tablet, Take 1 tablet (10 mg) by mouth Once as needed for migraine. May repeat in 2 hours if unresolved. 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 Objective Vitals: BP 131/82 (BP Location: Left arm, Patient Position: Sitting, BP Cuff Size: Adult) Pulse 63 Ht 5' 4" (1.626 m) Wt 144 lb 3.2 oz (65.4 kg) BMI 24.75 kg/m? General Appearance: Patient is in no apparent distress. Head is normocephalic, atraumatic Cardiovascular: Regular rate and rhythm. No heart murmurs. No carotid bruit Neurologic: Mentation: Alert and oriented x 3 to person, place and time. Speech and Language: Speech and language normal Concentration and Attention: Concentration normal Memory: Memory grossly normal Fund of Knowledge: Fund of knowledge normal Cranial Nerves: II, III, IV, V, , VII, VIII, IX, X, XI, XII examined and were intact. Motor: Strength: Strength 5 out of 5 with normal tone Alternating Movements: Normal Cogwheel Rigidity: None Tone: Tone is normal Tremor / Involuntary Movements: None Coordination: Normal coordination upper and lower extremities Gait and Station: Station is normal. Gait is normal Data Reviewed and Summarized DIAGNOSTIC TESTING TOPIRAMATE BLD Order: [id number] Component Ref Range & Units 4 mo ago Topiramate 5.0 - 20.0 ug/mL 9.7 Resulting Agency [facility] Specimen Collected: 04/09/25 10:30 IMPRESSION and PLAN: Diagnosis Plan 1. Focal epilepsy (CMS/HCC) (HCC) 2. Migraine without aura and without status migrainosus, not intractable No seizures for years. She is to continue topiramate Prn rizatriptan. Jazzmine Christensen MD I spent 20 minutes caring for this patient today, reviewing labs, records, seeing the patient, documenting in the record and arranging for studies. [facility] 04-27-2025 36 done [facility] 04-26-2025 36 Name of caller: Nelson hennessy Contact phone number: [phone] Relationship to Patient: patient Provider: Dr Christensen Practice: [facility] Neuro Chief Complaint/Reason for Call: Aarti called in to check status of BMV form. Patient asked for completed paperwork to be faxed to [facility] (info on printed form), and then she wished to be notified once office has sent the form. Please advise. Best time of day caller can be reached: any Patient advised that office/PCP has 24-48 business hours to return their call: Yes [facility] 36 Form has been printe d and put onto provider desk [facility] 36on 04-20-2025 36 Printed and put on providers desk [facility] 36on 04-19-2025 36 Name of caller: Nelson hennessy Contact phone number: [phone] Relationship to Patient: Patient Provider: Dr Christensen Practice: Neurology Chief Complaint/Reason for Call: Pt called requesting status of BMV form. Please send [employer] message to advise. Form has to be returned to [facility] by 04/29/25 to avoid license suspension for pt. Best time of day caller can be reached: Any Patient advised that office/PCP has 24-48 business hours to return their call: Yes [facility] CNOVon 04-12-2025 CNOV Office Visit (UCWSTR ) AARTI CONNER ([id number]) 1965 F T Date Time Provider Department 04/12/25 6:45 PM [facility] During your visit today, we recorded the following information about you: Temperature Pulse Respiration Blood pressure 99 degrees 56/minute 18/minute 159/81 Weight 65.9 kg Kari West APRN.SPINNING LATHE OPERATOR HYDRAULIC 04/12/2025 8:10 PM Signed Subjective Patient ID: Aarti is a 59 year old female who presents for Cough (Chest congestion and tightness x1 month, Covid over Easter weekend). The history is provided by the patient. No printed circuit board panels trimmer was used. Patient presents to clinic with cough and congestion x1m h/o seizure and migraines H/o covid positive last month +nonprod cough +chest congestion +BARTON 2/10 States feels like she needs to cough mucus up but cannot Denies chills, fever, SOB Denies OTC meds PAST MEDICAL HISTORY Diagnosis Date Migraine with aura, without mention of intractable migraine without mention of status migrainosus No past surgical history on file. ALLERGIES Patient has no known allergies. MEDICATIONS topiramate (TOPAMAX) 100 mg tablet ascorbic acid, vitamin C, (VITAMIN C) 250 mg tablet Take 500 mg by mouth. mv-min/folic/vit K/lycop/coQ10 (DAILY MULTIVITAMIN ORAL) Take by mouth. SUMAtriptan (IMITREX) 100 mg tablet Take by mouth. benzonatate (TESSALON PERLE) 100 mg capsule Take 1 capsule by mouth three times a day as needed. (Patient not taking: Reported on 04/12/2025) ibuprofen (MOTRIN) 200 mg tablet Take by mouth. (Patient not taking: Reported on 04/12/2025) FAMILY HISTORY Problem Relation Age of Onset Heart Father Diabetes Paternal Grandmother Social History Tobacco Use Smoking status: Never Smokeless tobacco: Never Substance Use Topics Alcohol use: No Drug use: No Objective BP 159/81 Pulse (!) 56 Temp 37.2 ?C (99 ?F) Resp 18 Wt 65.9 kg (145 lb 4.5 oz) LMP 01/01/2006 SpO2 100% Physical Exam Constitutional: Appearance: Normal appearance. HENT: Head: Normocephalic. Right Ear: Hearing, tympanic membrane, ear canal and external ear normal. Left Ear: Hearing, tympanic membrane, ear canal and external ear normal. Nose: Nose normal. Mouth/Throat: Mouth: Mucous membranes are moist. Eyes: Pupils: Pupils are equal, round, and reactive to light. Cardiovascular: Rate and Rhythm: Normal rate. Pulses: Normal pulses. Heart sounds: Normal heart sounds. Pulmonary: Effort: Pulmonary effort is normal. Breath sounds: Normal air entry. No decreased air movement. No decreased breath sounds. Abdominal: General: Bowel sounds are normal. Palpations: Abdomen is soft. Musculoskeletal: General: Normal range of motion. Cervical back: Normal range of motion. Skin: General: Skin is warm and dry. Capillary Refill: Capillary refill takes less than 2 seconds. Neurological: General: No focal deficit present. Mental Status: She is alert and oriented to person, place, and time. Psychiatric: Mood and Affect: Mood normal. Behavior: Behavior normal. Thought Content: Thought content normal. Judgment: Judgment normal. Assessment AND Plan Acute cough Orders: XR CHEST 2V FRONTAL/LAT; Future ASSESSMENT/PLAN: 1. Acute cough - ICD9: 786.2, ICD10: R05.1 X one month Progressively worsening - XR CHEST 2V FRONTAL/LAT-negative Printed RX Doxy patient can take given continuing symptoms Yudelka Wright Patient has had cough x one month Worsening Xray negative While walking out patient calls provider " camilo maya" TEACHING PROVIDER (Physician/PA/RETAIL ACCOUNT REPRESENTATIVE) NOTE OF PERSONAL INVOLVEMENT IN CARE: I have personally seen and examined the patient and performed the medical decision-making components. I have reviewed the Advanced Practice Registered Nurse (RETAIL ACCOUNT REPRESENTATIVE) Student's documentation and verified the findings in the note as written. Any additions or changes are noted in bold/italics. Signature: Kari West Date: 04/12/2025 Time: 8:09 PM Allergies As of Date: 04/12/2025 (No Known Allergies) Date Reviewed: 04/12/2025 Reviewed by: Lori Goss MA - Fully Assessed Reason for Visit: Cough [28] Cmt: Chest congestion and tightness x1 month, Covid over Easter weekend Primary Visit Diagnosis:Acute cough [R05.1] Order(s):XR CHEST 2V FRONTAL/LAT [[id number]] Order #: [id number] FUTURE doxycycline (VIBRA-TABS) 100 mg tabletTake 1 tablet by mouth two times a day for 7 days.Disp: 14 tabletRfl: 0 Prescriptions as of 04/12/2025 - doxycycline (VIBRA-TABS) 100 mg tablet Take 1 tablet by mouth two times a day for 7 days. - benzonatate (TESSALON PERLE) 100 mg capsule Take 1 capsule by mouth three times a day as needed. - topiramate (TOPAMAX) 100 mg tablet - ascorbic acid, vitamin C, (VITAMIN C) 250 mg tablet Take 500 mg by mouth. - mv-min/folic/vit K/lycop/coQ10 (DAILY MULTIVITAMIN ORAL) Take by mouth. (more content not included)... Normal [place] [facility] CHEST 2V FRONTAL/LATon XR CHEST 2V FRONTAL/LAT * * *Final Repor t* * * DATE OF EXAM: Apr 12 2025 7:31PM WOX [id number] - XR CHEST 2V FRONTAL/LAT / PROCEDURE REASON: Acute cough * * * * Physician Interpretation * * * * EXAMINATION: CHEST RADIOGRAPH (2 VIEW FRONTAL and LATERAL) CLINICAL HISTORY: Acute cough MQ: XC2_6 EXAM DATE/TIME: 04/12/2025 7:31 PM COMPARISON: Chest x-ray on 04/09/2023 RESULT: Lines, tubes, and devices: None. Lungs and pleura: No consolidation. No lung mass. No pleural effusion. No pneumothorax. Cardiomediastinal silhouette: Normal cardiomediastinal silhouette. Bones and soft tissues: Unremarkable. IMPRESSION: No acute radiographic abnormality. Cuff Stitcher: MARLEN Transcribe Date/Time: Apr 12 2025 8:05P Dictated by : MACY OLIVEROS MD This examination was interpreted and the report reviewed and electronically signed by: MACY OLIVEROS MD on Apr 12 2025 8:05PM EST [id number] [facility] XR Chest PA and Lateralon IMPRESSION: No acute radiographic abnormality. Cuff Stitcher: [facility] Transcribe Date/Time: Apr 12 2025 8:05P Dictated by : MACY OLIVEROS MD This examination was interpreted and the report reviewed and electronically signed by: MACY OLIVEROS MD on Apr 12 2025 8:05PM EST DIVISION OF RADIOLOGY * * *Final Report* * * DATE OF EXAM: Apr 12 2025 7:31PM WOX 5291 - XR CHEST 2V FRONTAL/LAT / PROCEDURE REASON: Acute cough * * * * Physician Interpretation * * * * EXAMINATION: CHEST RADIOGRAPH (2 VIEW FRONTAL & LATERAL) CLINICAL HISTORY: Acute cough MQ: XC2_6 EXAM DATE/TIME: 04/12/2025 7:31 PM COMPARISON: Chest x-ray on 04/09/2023 RESULT: Lines, tubes, and devices: None. Lungs and pleura: No consolidation. No lung mass. No pleural effusion. No pneumothorax. Cardiomediastinal silhouette: Normal cardiomediastinal silhouette. Bones and soft tissues: Unremarkable. DIVISION OF RADIOLOGY Provider, Kiarra vasquez [place] - 04/12/2025 * * *Final Report* * * DATE OF EXAM: Apr 12 2025 7:31PM WOX 5291 - XR CHEST 2V FRONTAL/LAT / PROCEDURE REASON: Acute cough * * * * Physician Interpretation * * * * EXAMINATION: CHEST RADIOGRAPH (2 VIEW FRONTAL & LATERAL) CLINICAL HISTORY: Acute cough MQ: XC2_6 EXAM DATE/TIME: 04/12/2025 7:31 PM COMPARISON: Chest x-ray on 04/09/2023 RESULT: Lines, tubes, and devices: None. Lungs and pleura: No consolidation. No lung mass. No pleural effusion. No pneumothorax. Cardiomediastinal silhouette: Normal cardiomediastinal silhouette. Bones and soft tissues: Unremarkable. IMPRESSION IMPRESSION: No acute radiographic abnormality. Cuff Stitcher: MARLEN Transcribe Date/Time: Apr 12 2025 8:05P Dictated by : MACY OLIVEROS MD This examination was interpreted and the report reviewed and electronically signed by: MACY OLIVEROS MD on Apr 12 2025 8:05PM EST [facility] Radiology Study observation (narrative) [facility] XR Chest PA and LateralOrder ed By: [facility] Provider on 04-12-2025 [facility] Basic metabolic 2000 panelon 04-09-2025 Anion gap [Moles/Vol] 14 mmol/L Normal 8-15 [facility] Comment on above: Order Comment: Jamie reis Type: BLOOD SPECIMEN Ordering Facility: External Submitter Address: , , Performed By: #### 2 4321-2 #### [facility] CLIA [id number] [address] [place] [address] [place] Calcium [Mass/Vol] 9.6 mg/dL Normal 8.5-10.2 [facility] Comment on above: Order Comment: Jamie reis Type: BLOOD SPECIMEN Ordering Facility: External Submitter Address: , , Performed By: #### 2 4321-2 #### [facility] CLIA [id number] [address] [id number] [address] [place] Chloride [Moles/Vol] 111 mmol/L High 98-107 [facility] Comment on above: Order Comment: Speci chato Type: BLOOD SPECIMEN Ordering Facility: External Submitter Address: , , Performed By: #### 2 4321-2 #### [facility] CLIA [id number] [address] [place] [id number] [place] CO2 [Moles/Vol] 20 mmol/L Low 22-30 [facility] Comment on above: Order Comment: Speci men Type: BLOOD SPECIMEN Ordering Facility: External Submitter Address: , , Performed By: #### 2 4321-2 #### [facility] CLIA [id number] [address] [place] [address] [place] [facility] Creatinine [Mass/Vol] 0.84 mg/dL Normal 0.58-0.96 [facility] Comment on above: Order Comment: Speci men Type: BLOOD SPECIMEN Ordering Facility: External Submitter Address: , , Performed By: #### 2 4321-2 #### [facility] CLIA [id number] [address] [place] [address] [place] [facility] Creatinine and Glomerular filtration rate.predicted panel (S/P/Bld) 81 mL/min/1.73m??? Normal >=60 [facility] Comment on above: Order Comment: Speci chato Type: BLOOD SPECIMEN Ordering Facility: External Submitter Address: , , Result Comment: Nidhi mated Glomerular Filtration Rate (eGFR) is calculated using the 2020 CKD-EPI creatinine equation. This equation utilizes serum creatinine, sex, and age as parameters. The creatinine assay has traceable calibration to isotope dilution-mass spectrometry. Refer to KDIGO guidelines for clinical interpretation. In patients with unstable renal function, e.g. those with acute kidney injury, the eGFR may not accurately reflect actual GFR. Performed By: #### 2 4321-2 #### [facility] CLIA [id number] [address] [address] [place] Glucose [Mass/Vol] 88 mg/dL Normal 74-99 [facility] Comment on above: Order Comment: Jamie reis Type: BLOOD SPECIMEN Ordering Facility: External Submitter Address: , , Result Comment: The [place] [employer] (ADA) provides guidance for cutoff values for fasting glucose and random glucose. The ADA defines fasting as no caloric intake for at least 8 hours. Fasting plasma glucose results between 100 to 125 mg/dL indicate increased risk for diabetes (prediabetes). Fasting plasma glucose results greater than or equal to 126 mg/dL meet the criteria for diagnosis of diabetes. In the absence of unequivocal hyperglycemia, results should be confirmed by repeat testing. In a patient with classic symptoms of hyperglycemia or hyperglycemic crisis, random plasma glucose results greater than or equal to 200 mg/dL meet the criteria for diagnosis of diabetes. Reference: Standards of Medical Care in Diabetes 2016, [place] [employer]. Diabetes Care. 2016.39(Suppl 1). Performed By: #### 2 4321-2 #### [facility] CLIA [id number] [address] [place] [address] [place] Potassium [Moles/Vol] 4.0 mmol/L Normal 3.7-5.1 [facility] Comment on above: Order Comment: Jamie reis Type: BLOOD SPECIMEN Ordering Facility: External Submitter Address: , , Performed By: #### 2 4321-2 #### [facility] CLIA [id number] [address] [address] [place] Sodium [Moles/Vol] 145 mmol/L High 136-144 [facility] Comment on above: Order Comment: Jamie reis Type: BLOOD SPECIMEN Ordering Facility: External Submitter Address: , , Performed By: #### 2 4321-2 #### [facility] CLIA [id number] [address] [address] [place] Urea nitrogen [Mass/Vol] 14 mg/dL Normal 7-21 [facility] Comment on above: Order Comment: Jamie reis Type: BLOOD SPECIMEN Ordering Facility: External Submitter Address: , , Performed By: #### 2 4321-2 #### [facility] CLIA [id number] [address] [place], [place] [id number] [place] Topiramate SerPl-mCncon 05-1 Topiramate [Mass/Vol] 9.7 ug/mL Normal 5.0-20.0 [facility] Comment on above: Order Comment: Speci men Type: BLOOD SPECIMEN Ordering Facility: External Submitter Address: , , Result Comment: Refe rence ranges and high/low indicator flags are provided as general guidelines only. The treating physician must determine appropriate target levels/dosing based on the specific clinical situation. This test was developed, and its performance characteristics determined by the [facility] Department of Pathology and Laboratory Medicine. It has not been cleared or approved by the FDA. The [facility] Department of Pathology and Laboratory Medicine is regulated under CLIA as qualified to perform high-complexity testing. This test is used for clinical purposes. It should not be regarded as investigational or for research. Performed By: #### 1 7713-9 #### [facility] CLIA [id number] [address] [place] [address] [facility] [place] CNOVon 03-22-2025 CNOV Office Visit (UCWSTR ) AARTI CONNER ([id number]) 1965 F T Date Time Provider Department 03/22/25 2:45 PM SUZETTE WOLFE [facility] During your visit today, we recorded the following information about you: Temperature Pulse Respiration Blood pressure 100 degrees 75/minute 18/minute 136/82 Weight 65.1 kg Suzette Wolfe PA 03/22/2025 2:58 PM Signed [facility] Subjective Aartiminoo Conner is a 59 year old female. Patient presents with: Cough: Chills, fever, bodyaches, nausea, BARTON x3 days HPI 59-year-old female presents for cough, chills, fever, body aches, runny nose, nausea, headache x 3 days. Patient states she has been sick for the past few days. She has a dry cough. She denies any chest pain or shortness of breath. No history of COPD or asthma. She has a little bit of nasal congestion. She has had chills, body aches, fever. She has taken ibuprofen for symptoms. sick with similar symptoms. No other complaint PAST MEDICAL HISTORY Diagnosis Date Migraine with aura, without mention of intractable migraine without mention of status migrainosus No past surgical history on file. ALLERGIES Patient has no known allergies. MEDICATIONS topiramate (TOPAMAX) 100 mg tablet ascorbic acid, vitamin C, (VITAMIN C) 250 mg tablet Take 500 mg by mouth. mv-min/folic/vit K/lycop/coQ10 (DAILY MULTIVITAMIN ORAL) Take by mouth. ibuprofen (MOTRIN) 200 mg tablet Take by mouth. SUMAtriptan (IMITREX) 100 mg tablet Take by mouth. benzonatate (TESSALON PERLE) 100 mg capsule Take 1 capsule by mouth three times a day as needed. FAMILY HISTORY Problem Relation Age of Onset Heart Father Diabetes Paternal Grandmother Social History Tobacco Use Smoking status: Never Smokeless tobacco: Never Substance Use Topics Alcohol use: No Drug use: No Review of Systems Constitutional: Positive for chills and fever. HENT: Positive for congestion. Negative for ear pain and sore throat. Respiratory: Positive for cough. Negative for shortness of breath. Cardiovascular: Negative for chest pain. Gastrointestinal: Negative for diarrhea and vomiting. Neurological: Positive for headaches. Objective BP 136/82 Pulse 75 Temp 37.8 ?C (100 ?F) Resp 18 Wt 65.1 kg (143 lb 8.3 oz) LMP 01/01/2006 SpO2 95% Physical Exam Vitals and nursing note reviewed. Constitutional: General: She is not in acute distress. Appearance: Normal appearance. She is not toxic-appearing. HENT: Right Ear: Tympanic membrane and ear canal normal. Left Ear: Tympanic membrane and ear canal normal. Nose: Congestion present. Mouth/Throat: Mouth: Mucous membranes are moist. Pharynx: Oropharynx is clear. Eyes: Conjunctiva/sclera: Conjunctivae normal. Cardiovascular: Rate and Rhythm: Normal rate and regular rhythm. Pulmonary: Effort: Pulmonary effort is normal. Breath sounds: Normal breath sounds. No wheezing, rhonchi or rales. Skin: General: Skin is warm and dry. Neurological: Mental Status: She is alert. {ASSESSMENT/PLAN: 1. URI, acute - ICD9: 465.9, ICD10: J06.9 - Discussed viral etiology and rationale for treatment. - Symptomatic treatment with prn analgesia - Supportive care with fluids and rest - Rx Tessalon Perle - COVID AND INFLUENZA A/B AND RSV PCR, ROUTINE - Out of window for Tamiflu Diagnosis and treatment plan were discussed and questions were answered to the patient's satisfaction. Pt acknowledged understanding of concepts and follow up plan. Specific signs and symptoms that would indicate the need for higher level of care were discussed in detail warranting prompt ER evaluation. MATTHEW Alexander History and Record Review External record(s) reviewed: prior outpatient record. Systemic symptoms present included: fever Differential Diagnoses - Viral URI is more likely for the following reason(s): suggested by HANDP - Pneumonia is less likely for the following reason(s): HANDP not suggestive Disposition The patient was discharged. OTC Medications were advised: May continue Tylenol/Motrin for fever Procedures Allergies As of Date: 03/22/2025 (No Known Allergies) Date Reviewed: 03/22/2025 Reviewed by: Lori Goss MA - Fully Assessed Reason for Visit: Cough [28] Cmt: Chills, fever, bodyaches, nausea, BARTON x3 days Primary Visit Diagnosis:URI, acute [J06.9] Order(s):COVID AND INFLUENZA A/B AND RSV PCR, ROUTINE [SQCVFLRS] Order #: [id number]. #:[id number] benzonatate (TESSALON PERLE) 100 mg capsuleTake 1 capsule by mouth three times a day as needed.Disp: 21 capsuleRfl: 0 Prescriptions as of 03/22/2025 - benzonatate (TESSALON PERLE) 100 mg capsule Take 1 capsule by mouth three times a day as needed. - topiramate (TOPAMAX) 100 mg tablet - ascorbic acid, vitamin C, (VITAMIN C) 250 mg tablet Take 500 mg by mouth. - mv-min/folic/vit K/lyc (more content not included)... [facility] COVID & INFLUENZA A/B & RSV PCR, ROUTINEOrdered By: Anupama Wood on 03-22-2025 FLUAV RNA KRISTAL+probe Ql (Unsp spec) Not detected Not Detected [facility] FLUBV RNA KRISTAL+probe Ql (Unsp spec) Not detected Not Detected [facility] Interpretation and review of laboratory results Abnormal [facility] RSV A RNA KRISTAL+probe Ql (Unsp spec) Not detected Not Detected [facility] SARS-CoV-2 (COVID-19) RNA KRISTAL+probe Ql (Unsp spec) Detected Abnormal See comment [facility] Reference Range (the expected result in uninfected individuals): Not detected [facility] CNOVon 05-30-2024 CNOV Office Visit (UCTR ) AARTI CONNER ([id number]) 1965 F CHT Date Time Provider Department 05/30/24 8:45 AM SUNIL DE LEON [facility] During your visit today, we recorded the following information about you: Temperature Pulse Respiration Blood pressure 98.2 degrees 86/minute 18/minute 122/78 Weight 61.1 kg Sunil De Leon APRN.SPINNING LATHE OPERATOR HYDRAULIC 05/30/2024 9:18 AM Signed Subjective HPI HPI Aarti Sanaz Claude is a 58 year old female who presents today for CC of itchy rash no left foot. This started 1 month ago. Has tried combo antifungal and steroid cream that worked but only used for short period of time. Symptoms are worsened by nothing. Risk factors none. Denies fever. .Patient presents with: Rash: itching and redness on left foot x end of march PAST MEDICAL HISTORY Diagnosis Date Migraine with aura, without mention of intractable migraine without mention of status migrainosus No past surgical history on file. ALLERGIES Patient has no known allergies. MEDICATIONS topiramate (TOPAMAX) 100 mg tablet ascorbic acid, vitamin C, (VITAMIN C) 250 mg tablet Take 500 mg by mouth. mv-min/folic/vit K/lycop/coQ10 (DAILY MULTIVITAMIN ORAL) Take by mouth. ibuprofen (MOTRIN) 200 mg tablet Take by mouth. SUMAtriptan (IMITREX) 100 mg tablet Take by mouth. FAMILY HISTORY Problem Relation Age of Onset Heart Father Diabetes Paternal Grandmother Social History Tobacco Use Smoking status: Never Smokeless tobacco: Never Substance Use Topics Alcohol use: No Drug use: No ROS Objective Blood pressure 122/78, pulse 86, temperature 36.8 ?C (98.2 ?F), resp. rate 18, weight 61.1 kg (134 lb 11.2 oz), last menstrual period 01/01/2006, SpO2 99%. Physical Exam Constitutional: General: She is not in acute distress. Appearance: She is not toxic-appearing or diaphoretic. HENT: Head: Normocephalic and atraumatic. Pulmonary: Effort: Pulmonary effort is normal. No accessory muscle usage or respiratory distress. Musculoskeletal: Feet: Neurological: Mental Status: She is alert and oriented to person, place, and time. ASSESSMENT/PLAN: 1. Rash - ICD9: 782.1, ICD10: R21 Fungal suspected -use medication as prescribed -follow up if symptoms persist, worsen, change - TERBINAFINE HCL 1 % TOPICAL CREAM Sunil De Leon APRN.SPINNING LATHE OPERATOR HYDRAULIC Allergies As of Date: 05/30/2024 (No Known Allergies) Date Reviewed: 04/09/2023 Reviewed by: Diana Dugan MA - Fully Assessed Reason for Visit: Rash [1087] Cmt: itching and redness on left foot x end of march Primary Visit Diagnosis:Rash [R21] Order(s):terbinafine HCl (LAMISIL AT) 1 % creamApply to affected area two times a day for 14 days.Disp: 12 gRfl: 2 Prescriptions as of 05/30/2024 - terbinafine HCl (LAMISIL AT) 1 % cream Apply to affected area two times a day for 14 days. - topiramate (TOPAMAX) 100 mg tablet - ascorbic acid, vitamin C, (VITAMIN C) 250 mg tablet Take 500 mg by mouth. - mv-min/folic/vit K/lycop/coQ10 (DAILY MULTIVITAMIN ORAL) Take by mouth. - ibuprofen (MOTRIN) 200 mg tablet Take by mouth. - SUMAtriptan (IMITREX) 100 mg tablet Take by mouth. Problem List As Of Date: 05/30/2024 (None) Prescriptions ordered this encounter Disp Refills Start End TERBINAFINE HCL 1 % TOPICAL CREAM 12 g 2 05/30/2024 06/13/2024 Route: TOPICAL Sig: Apply to affected area two times a day for 14 days. Encounter Status:Closed by SUNIL DE LEON on 05/30/24 [facility] Absolute lymphocyte countOrd ered By: Shyanne Chavez on 02-24-2024 Lymphocytes Auto (Unsp spec) [#/Vol] 1.76 10*3/uL 0.83-4.51 [facility] Automated lymphocyte count a s percentage of total leukocytesOrdered By: Shyanne Chavez on 02-24-2024 Lymphocytes/100 WBC Auto (Unsp spec) 46.3 % 19-41 [facility] Basophil percentageOrdered B y: Shyanne Chavez on 02-24-2024 Basophils/100 WBC (Bld) 0.3 % 0-1 [facility] Bilirubin [Mass/Vol] 0.30 mg/dL 0.20-1.00 [facility] Comment on above: For patients on eltr ombopag therapy, use of Dimension [place] TBIL is not recommended. Chloride [Moles/Vol] 108 mmol/L 98-107 [facility] Cholesterol [Mass/Vol] 202 mg/dL <200 [facility] Comment on above: <200 mg/dL Desirable 200-240 mg/dL Borderline >240 mg/dL High Risk Eosinophils/100 WBC (Bld) 1.6 % 0-5 [facility] Glucose [Mass/Vol] 90 mg/dL 74-106 [facility] Hemoglobin (Bld) [Mass/Vol] 12.9 g/dL 12.0-15.0 [facility] Monocytes/100 WBC (Bld) 8.2 % 0-10 [facility] Neutrophils (Bld) [#/Vol] 1.7 10*3/uL 2.0-7.7 [facility] Neutrophils/100 WBC (Bld) 43.3 % 47-70 [facility] Potassium [Moles/Vol] 3.3 mmol/L 3.5-5.1 [facility] Protein [Mass/Vol] 7.3 g/dL 6.4-8.2 [facility] Sodium [Moles/Vol] 138 mmol/L 136-145 [facility] Triglyceride [Mass/Vol] 62 mg/dL <199 [facility] Comment on above: The drugs N-Acetylcy steine and Metamizole may falsely depress this assay.Serum Triglycerides Reference Interval Normal <150 mg/dL Borderline high 150 - 199 mg/dL High 200 - 499 mg/dL Very High > or = 500 mg/dL WBC (Bld) [#/Vol] 3.8 10*3/uL 4.4-11.0 [facility] Determination of erythrocyte mean corpuscular volume (MCV)Ordered By: Shyanne Chavez on 02-24-2024 MCV (RBC) [Entitic vol] 86.3 fL 81-99 [facility] Erythrocyte distribution wid th ratioOrdered By: Shyanne Chavez on 02-24-2024 Erythrocyte distribution width (RBC) [Ratio] 12.6 % 11.6-14.6 [facility] Erythrocyte distribution wid th standard deviationOrdered By: Shyanne Chavez on 02-24-2024 Erythrocyte distribution width (RBC) [Entitic vol] 39.8 fL 35.1-43.9 [facility] Erythrocyte sedimentation ra teOrdered By: Shyanne Chavez on 02-24-2024 ESR (Bld) [Velocity] 6 mm/h 0-30 [facility] Hematocrit Auto (Bld) [Volum e fraction]Ordered By: Shyanne Chavez on 02-24-2024 Hematocrit (Bld) [Volume fraction] 39.0 % 37-47 [facility] Immature granulocytes/100 WB C Auto (Bld)Ordered By: Shyanne Chavez on 02-24-2024 Immature granulocytes/100 WBC (Bld) 0.300 % 0.0-0.9 [facility] Comment on above: IG% - Immature Granu locytes (promyelocytes, myelocytes and metamyelocytes) > 1% indicates that a LEFT SHIFT is Present. Laboratory - Chemistry and C hemistry - challengeOrdered By: Shyanne Chavez on 02-24-2024 Albumin/Globulin [Mass ratio] 1.1 {ratio} 0.9-2.4 [facility] ALP [Catalytic activity/Vol] 99 U/L 45-117 [facility] ALT [Catalytic activity/Vol] 25 U/L 13-56 [facility] Cholesterol in HDL [Mass/Vol] 65 mg/dL >40 [facility] Comment on above: The drugs N-Acetylcy steine and Metamizole may falsely depress this assay. Reference Range HDL <40 mg/dL Low HDL Cholesterol HDL >or= 60 mg/dL High HDL Cholesterol Cholesterol in LDL [Mass/Vol] 125 mg/dL 0-130 [facility] CO2 [Moles/Vol] 23.0 mmol/L 21.0-32.0 [facility] Globulin (S) [Mass/Vol] 3.4 g/dL 2.2-4.2 [facility] Urea nitrogen/Creatinine [Mass ratio] 18.5 mg/mg 10-20 [facility] Laboratory - Hematology and Cell countsOrdered By: Shyanne Chavez on 02-24-2024 MCH (RBC) [Entitic mass] 28.5 pg 27.0-32.0 [facility] MCHC (RBC) [Mass/Vol] 33.1 g/dL 32-36 [facility] Nucleated RBC/100 WBC (Bld) [Ratio] 0 % 0-5 [facility] Platelet mean volume (Bld) [Entitic vol] 10.5 fL 6.2-12.0 [facility] Platelets (Bld) [#/Vol] 163 10*3/uL 150-450 [facility] No Panel InformationOrdered By: Shyanne Chavez on 02-24-2024 Estimated GFR (MDRD) Amer 111 mL/min >60 [facility] Comment on above: GFR Calc Estimated GFR (MDRD) Non-Af Amer 92 mL/min >60 [facility] Comment on above: Non- GFR Calc VLDL Cholesterol 12 mg/dL 5-40 [facility] RBC Auto (Bld) [#/Vol]Ordere d By: Shyanne Chavez on 02-24-2024 RBC (Bld) [#/Vol] 4.52 10*6/uL 4.2-5.4 [facility] Serum or plasma calcium kya urement (mass/volume)Ordered By: Shyanne Chavez on 02-24-2024 Calcium [Mass/Vol] 8.7 mg/dL 8.5-10.1 [facility] Serum or plasma creatinine m easurement (mass/volume)Ordered By: Shyanne Chavez on 02-24-2024 Creatinine [Mass/Vol] 0.70 mg/dL 0.55-1.02 [facility] Comment on above: The validity of the calculated GFR & GFRAA in patients over 70 years has not been determined. Clinical correlation is essential. Serum or plasma thyroid stim ulating hormone (TSH) measurement (units/volume)Ordered By: Shyanne Chavez on 02-24-2024 TSH Qn 0.53 uIU/mL 0.358-3.74 [facility] Serum or plasma urea nitroge n measurement (mass/volume)Ordered By: Shyanne Chavez on 02-24-2024 Urea nitrogen [Mass/Vol] 13 mg/dL 7-18 [facility] Thin prep Papanicolaou smear with manual screeningOrdered By: Shyanne Chavez on 02-24-2024 Thin prep Papanicolaou smear with manual screening 3.9 g/dL 3.2-5.0 [facility] Thin prep Papanicolaou smear with manual screening 20 U/L 15-37 [facility] Thin prep Papanicolaou smear with manual screening 7 5-15 [facility] Whole blood hemoglobin A1c/t otal hemoglobin ratio (mass fraction)Ordered By: Shyanne Chavez on 02-24-2024 HbA1c (Bld) [Mass fraction] 5.1 % 3.8-5.6 [facility] Comment on above: Normal < 5.7 % Predi abetic 5.7 - 6.4 % Diabetic >or= 6.5 % Please note range changes. Basophil percentageOrdered B y: Jazzmine Christensen on 11-25-2023 Bilirubin [Mass/Vol] 0.30 mg/dL 0.20-1.00 [facility] Comment on above: For patients on eltr ombopag therapy, use of [place] TBIL is not recommended. Chloride [Moles/Vol] 115 mmol/L 98-107 [facility] Glucose [Mass/Vol] 89 mg/dL 74-106 [facility] Potassium [Moles/Vol] 3.6 mmol/L 3.5-5.1 [facility] Protein [Mass/Vol] 7.3 g/dL 6.4-8.2 [facility] Sodium [Moles/Vol] 144 mmol/L 136-145 [facility] Laboratory - Chemistry and C hemistry - challengeOrdered By: Jazzmine Christensen on 11-25-2023 ALP [Catalytic activity/Vol] 97 U/L 45-117 [facility] ALT [Catalytic activity/Vol] 20 U/L 13-56 [facility] CO2 [Moles/Vol] 24.0 mmol/L 21.0-32.0 [facility] Globulin (S) [Mass/Vol] 3.4 g/dL 2.2-4.2 [facility] Urea nitrogen/Creatinine [Mass ratio] 17.1 mg/mg 10-20 [facility] No Panel InformationOrdered By: Jazzmine Christensen on 11-25-2023 Estimated GFR (MDRD) Amer 111 mL/min >60 [facility] Comment on above: GFR Calc Estimated GFR (MDRD) Non-Af Amer 92 mL/min >60 [facility] Comment on above: Non- GFR Calc Serum or plasma albumin kya urement (mass/volume)Ordered By: Jazzmine Christensen on 11-25-2023 Albumin [Mass/Vol] 3.9 g/dL 3.2-5.0 [facility] Serum or plasma albumin/glob ulin mass ratioOrdered By: Jazzmine Christensen on 11-25-2023 Albumin/Globulin [Mass ratio] 1.1 {ratio} 0.9-2.4 [facility] Serum or plasma calcium kya urement (mass/volume)Ordered By: Jazzmine Christensen on 11-25-2023 Calcium [Mass/Vol] 9.1 mg/dL 8.5-10.1 [facility] Serum or plasma creatinine m easurement (mass/volume)Ordered By: Jazzmine Christensen on 11-25-2023 Creatinine [Mass/Vol] 0.70 mg/dL 0.55-1.02 [facility] Comment on above: The validity of the calculated GFR & GFRAA in patients over 70 years has not been determined. Clinical correlation is essential. Serum or plasma topiramate m easurement (mass/volume)Ordered By: Jazzmine Christensen on 11-25-2023 Topiramate [Mass/Vol] 10.2 ug/mL 2.0-25.0 [facility] Comment on above: Detection Limit = 1. 5Performed at: [facility] [id number] [place], [place] [id number] Director: Haider Oleary MD, Phone: [phone] Serum or plasma urea nitroge n measurement (mass/volume)Ordered By: Jazzmine Christensen on 11-25-2023 Urea nitrogen [Mass/Vol] 12 mg/dL 7-18 [facility] Thin prep Papanicolaou smear with manual screeningOrdered By: Jazzmine Christensen on 11-25-2023 Thin prep Papanicolaou smear with manual screening 18 U/L 15-37 [facility] Thin prep Papanicolaou smear with manual screening 5 5-15 [facility] XR CHEST 2V FRONTAL/LATon [facility] XR Chest PA and Lateralon IMPRESSION: No acute radiographic abnormality. Cuff Stitcher: MARLEN Transcribe Date/Time: Apr 09 2023 7:33P Dictated by : JAZZMINE GAITAN MD This examination was interpreted and the report reviewed and electronically signed by: JAZZMINE GAITAN MD on Apr 09 2023 7:34PM [facility] DIVISION OF RADIOLOGY * * *Final Report* * * DATE OF EXAM: Apr 09 2023 7:32PM WOX 5291 - XR CHEST 2V FRONTAL/LAT / PROCEDURE REASON: Acute cough * * * * Physician Interpretation * * * * EXAMINATION: CHEST RADIOGRAPH (2 VIEW FRONTAL & LATERAL) CLINICAL HISTORY: Acute cough MQ: XC2_6 EXAM DATE/TIME: 04/09/2023 7:32 PM COMPARISON: No relevant prior studies available. RESULT: Lines, tubes, and devices: None. Lungs and pleura: No consolidation. No lung mass. No pleural effusion. No pneumothorax. Right lower lobe calcified granuloma Cardiomediastinal silhouette: Normal cardiomediastinal silhouette. Bones and soft tissues: Unremarkable. DIVISION OF RADIOLOGY Provider, [facility] - 04/09/2023 * * *Final Report* * * DATE OF EXAM: Apr 09 2023 7:32PM WOX 5291 - XR CHEST 2V FRONTAL/LAT / PROCEDURE REASON: Acute cough * * * * Physician Interpretation * * * * EXAMINATION: CHEST RADIOGRAPH (2 VIEW FRONTAL & LATERAL) CLINICAL HISTORY: Acute cough MQ: XC2_6 EXAM DATE/TIME: 04/09/2023 7:32 PM COMPARISON: No relevant prior studies available. RESULT: Lines, tubes, and devices: None. Lungs and pleura: No consolidation. No lung mass. No pleural effusion. No pneumothorax. Right lower lobe calcified granuloma Cardiomediastinal silhouette: Normal cardiomediastinal silhouette. Bones and soft tissues: Unremarkable. IMPRESSION IMPRESSION: No acute radiographic abnormality. Cuff Stitcher: PSCB Transcribe Date/Time: Apr 09 2023 7:33P Dictated by : JAZZMINE GAITAN MD This examination was interpreted and the report reviewed and electronically signed by: JAZZMINE GAITAN MD on Apr 09 2023 7:34PM EST [facility] Radiology Study observation (narrative) [facility] XR Chest PA and LateralOrder ed By: Ccf Provider on 04-09-2023 [facility] URINE CULTUREon 11-28-2022 Bacteria identified Cx Nom (U) No growth (<1,000 CFU/ml) [facility] UA DIP, URINE (POC)on 2021 BILIRUBIN UA (POCT) Negative Negative [facility] CLARITY UA (POCT) Clear [facility] COLOR UA (POCT) Yellow [facility] GLUCOSE UA (POCT) Negative Negative mg/dL [facility] HEMOGLOBIN/BLOOD UA (POCT) Trace-intact Abnormal Negative [facility] KETONE UA (POCT) Negative Negative mg/dL [facility] LEUKOCYTES UA (POCT) Negative Negative [facility] NITRITE UA (POCT) Negative Negative [facility] PH UA (POCT) 5.5 4.5 - 8.0 [facility] Protein Ql (U) Negative Negative mg/dL [facility] SPECIFIC GRAVITY UA (POCT) <=1.005 Abnormal 1.005 - 1.030 [facility] UROBILINOGEN UA (POCT) 0.2 E.U./dL [place] E.U./dL [facility] XR RIBS/CHEST 3V AP RIB/OBLS /CXR RIGHTon 11-26-2022 [facility] XR Ribs - right Views and est PAon 11-26-2022 IMPRESSION: 1, No displaced rib fracture seen. 2. acute cardiopulmonary abnormalities. 3. Evidence of old granulomatous disease in the right lung. 4. Relative hyperaeration, possibly strong inspiration. Clinical correlation suggested to exclude COPD. Cuff Stitcher: MARLEN Transcribe Date/Time: Nov 26 2022 7:40P Dictated by : GHADA DODSON MD This examination was interpreted and the report reviewed and electronically signed by: GHADA DODSON MD on Nov 26 2022 7:45PM [facility] DIVISION OF RADIOLOGY * * *Final Report* * * DATE OF EXAM: Nov 26 2022 7:17PM WOX 5244 - XR RIB/CHST 3V AP RIB/OBL/CHST R / PROCEDURE REASON: Rib pain on right side * * * * Physician Interpretation * * * * RIGHT RIBS, WITH PA CHEST, 11/26/2022 HISTORY: Right rib pain. COMPARISON: CT chest 09/30/2005 TECHNIQUE: AP and oblique views of the right ribs. Upright PA chest. RESULTS: The bones are intact. No displaced fracture is seen. No underlying bone lesions are seen. The heart size is normal. The hilar and mediastinal soft tissues are within normal limits. There is a calcified granuloma in the basilar right lower lobe lung. There are calcified right hilar lymph nodes. No pulmonary infiltrates are seen. There is relative hyperaeration. There is no appreciable pleural fluid or pneumothorax. DIVISION OF RADIOLOGY Provider, [facility] - 11/26/2022 * * *Final Report* * * DATE OF EXAM: Nov 26 2022 7:17PM WOX 5244 - XR RIB/CHST 3V AP RIB/OBL/CHST R / PROCEDURE REASON: Rib pain on right side * * * * Physician Interpretation * * * * RIGHT RIBS, WITH PA CHEST, 11/26/2022 HISTORY: Right rib pain. COMPARISON: CT chest 09/30/2005 TECHNIQUE: AP and oblique views of the right ribs. Upright PA chest. RESULTS: The bones are intact. No displaced fracture is seen. No underlying bone lesions are seen. The heart size is normal. The hilar and mediastinal soft tissues are within normal limits. There is a calcified granuloma in the basilar right lower lobe lung. There are calcified right hilar lymph nodes. No pulmonary infiltrates are seen. There is relative hyperaeration. There is no appreciable pleural fluid or pneumothorax. IMPRESSION IMPRESSION: 1, No displaced rib fracture seen. 2. acute cardiopulmonary abnormalities. 3. Evidence of old granulomatous disease in the right lung. 4. Relative hyperaeration, possibly strong inspiration. Clinical correlation suggested to exclude COPD. Cuff Stitcher: PSCB Transcribe Date/Time: Nov 26 2022 7:40P Dictated by : GHADA DODSON MD This examination was interpreted and the report reviewed and electronically signed by: GHADA DODSON MD on Nov 26 2022 7:45PM EST [facility] Radiology Study observation (narrative) Vivek aleman [facility] XR Ribs - right Views and Ch est PAOrdered By: Ccf Provider on 11-26-2022 [facility] Vital Signs Date Time Vital Sign Value Performing Clinician Faci lity 08-12-2025 08:04-0400 Body height 162.6 cm Jazzmine Christensen MD Work Phone: [facility] 08-12-2025 08:04-0400 Body mass index (BMI) [Ratio] 24.75 kg/m2 Jazzmine Christensen MD Work Phone: [facility] 08-12-2025 08:04-0400 Body weight 65.41 kg Jazzmine Christensen MD Work Phone: [facility] 08-12-2025 08:04-0400 Diastolic blood pressure 82 mm[Hg] Jazzmine Christensen MD Work Phone: [facility] 08-12-2025 08:04-0400 Heart rate 63 /min Jazzmine Christensen MD Work Phone: [facility] 08-12-2025 08:04-0400 Systolic blood pressure 131 mm[Hg] Jazzmine Christensen MD Work Phone: [facility] 04-12-2025 19:01-0400 Body temperature 99 [degF] Kari West RETAIL ACCOUNT REPRESENTATIVE.SPINNING LATHE OPERATOR HYDRAULIC Work Phone: [facility] 04-12-2025 19:01-0400 Body weight 65.9 kg Kari West RETAIL ACCOUNT REPRESENTATIVE.SPINNING LATHE OPERATOR HYDRAULIC Work Phone: [facility] 04-12-2025 19:01-0400 Diastolic blood pressure 81 mm[Hg] Kari West RETAIL ACCOUNT REPRESENTATIVE.SPINNING LATHE OPERATOR HYDRAULIC Work Phone: [facility] 04-12-2025 19:01-0400 Heart rate 56 /min Kari West RETAIL ACCOUNT REPRESENTATIVE.SPINNING LATHE OPERATOR HYDRAULIC Work Phone: [facility] 04-12-2025 19:01-0400 Respiratory rate 18 /min Kari West RETAIL ACCOUNT REPRESENTATIVE.SPINNING LATHE OPERATOR HYDRAULIC Work Phone: [facility] 04-12-2025 19:01-0400 SaO2% (BldA) [Mass fraction] 100 % Kari West RETAIL ACCOUNT REPRESENTATIVE.SPINNING LATHE OPERATOR HYDRAULIC Work Phone: [facility] 04-12-2025 19:01-0400 Systolic blood pressure 159 mm[Hg] Kari West RETAIL ACCOUNT REPRESENTATIVE.SPINNING LATHE OPERATOR HYDRAULIC Work Phone: [facility] 03-22-2025 14:46-0400 Body temperature 100 [degF] Krislyn Aberegg PA Work Phone: [facility] 03-22-2025 14:46-0400 Body weight 65.1 kg Krislyn Aberegg PA Work Phone: [facility] 03-22-2025 14:46-0400 Diastolic blood pressure 82 mm[Hg] Krislyn Aberegg PA Work Phone: [facility] 03-22-2025 14:46-0400 Heart rate 75 /min Krislyn Aberegg PA Work Phone: [facility] 03-22-2025 14:46-0400 Respiratory rate 18 /min Krislyn Aberegg PA Work Phone: [facility] 03-22-2025 14:46-0400 SaO2% (BldA) [Mass fraction] 95 % Krislyn Aberegg PA Work Phone: [facility] 03-22-2025 14:46-0400 Systolic blood pressure 136 mm[Hg] Krislyn Aberegg PA Work Phone: [facility] 08-11-2024 08:00-0400 Body height 162.6 cm Jazzmine Christensen MD Work Phone: [facility] 08-11-2024 08:00-0400 Body mass index (BMI) [Ratio] 23.69 kg/m2 Jazzmine Christensen MD Work Phone: [facility] 08-11-2024 08:00-0400 Body weight 62.6 kg Jazzmine Christensen MD Work Phone: [facility] 08-11-2024 08:00-0400 Diastolic blood pressure 80 mm[Hg] Jazzmine Christensen MD Work Phone: [facility] 08-11-2024 08:00-0400 Heart rate 61 /min Jazzmine Christensen MD Work Phone: [facility] 08-11-2024 08:00-0400 Systolic blood pressure 135 mm[Hg] Jazzmine Christensen MD Work Phone: [facility] 05-30-2024 08:33-0400 Body temperature 98.2 [degF] Sunil De Leon RETAIL ACCOUNT REPRESENTATIVE.SPINNING LATHE OPERATOR HYDRAULIC Work Phone: [facility] 05-30-2024 08:33-0400 Body weight 61.1 kg Sunil De Leon RETAIL ACCOUNT REPRESENTATIVE.SPINNING LATHE OPERATOR HYDRAULIC Work Phone: [facility] 05-30-2024 08:33-0400 Diastolic blood pressure 78 mm[Hg] Sunil De Leon RETAIL ACCOUNT REPRESENTATIVE.SPINNING LATHE OPERATOR HYDRAULIC Work Phone: [facility] 05-30-2024 08:33-0400 Heart rate 86 /min Sunil De Leon RETAIL ACCOUNT REPRESENTATIVE.SPINNING LATHE OPERATOR HYDRAULIC Work Phone: [facility] 05-30-2024 08:33-0400 Respiratory rate 18 /min Sunil De Leon RETAIL ACCOUNT REPRESENTATIVE.SPINNING LATHE OPERATOR HYDRAULIC Work Phone: [facility] 05-30-2024 08:33-0400 SaO2% (BldA) [Mass fraction] 99 % Sunil De Leon RETAIL ACCOUNT REPRESENTATIVE.SPINNING LATHE OPERATOR HYDRAULIC Work Phone: [facility] 05-30-2024 08:33-0400 Systolic blood pressure 122 mm[Hg] Sunil De Leon APRN.CNP Work Phone: [facility] 08-25-2023 08:02-0400 Body mass index (BMI) [Ratio] 23 kg/m2 Jazzmine Christensen MD Work Phone: [facility] 08-25-2023 08:02-0400 Body weight 60.78 kg Jazzmine Christensen MD Work Phone: [facility] 08-25-2023 08:02-0400 Diastolic blood pressure 85 mm[Hg] Jazzmine Christensen MD Work Phone: [facility] 08-25-2023 08:02-0400 Heart rate 62 /min Jazzmine Christensen MD Work Phone: [facility] 08-25-2023 08:02-0400 Systolic blood pressure 132 mm[Hg] Jazzmine Christensen MD Work Phone: [facility] 04-09-2023 19:11-0400 Body temperature 98.1 [degF] Sona Athy PA-C Work Phone: [facility] 04-09-2023 19:11-0400 Body weight 61.87 kg Sona Athy PA-C Work Phone: [facility] 04-09-2023 19:11-0400 Diastolic blood pressure 96 mm[Hg] Sona Athy PA-C Work Phone: [facility] 04-09-2023 19:11-0400 Heart rate 65 /min Sona Athy PA-C Work Phone: [facility] 04-09-2023 19:11-0400 Respiratory rate 16 /min Sona Athy PA-C Work Phone: [facility] 04-09-2023 19:11-0400 SaO2% (BldA) [Mass fraction] 98 % Sona Athy PA-C Work Phone: [facility] 04-09-2023 19:11-0400 Systolic blood pressure 152 mm[Hg] Sona Acevedo PA-C Work Phone: [facility] 11-26-2022 18:38-0500 Body temperature 97.81 [degF] Sunil De Leon RETAIL ACCOUNT REPRESENTATIVE.SPINNING LATHE OPERATOR HYDRAULIC Work Phone: [facility] 11-26-2022 18:38-0500 Body weight 61.87 kg Sunil De Leon RETAIL ACCOUNT REPRESENTATIVE.SPINNING LATHE OPERATOR HYDRAULIC Work Phone: [facility] 11-26-2022 18:38-0500 Diastolic blood pressure 86 mm[Hg] Sunil De Leon RETAIL ACCOUNT REPRESENTATIVE.SPINNING LATHE OPERATOR HYDRAULIC Work Phone: [facility] 11-26-2022 18:38-0500 Heart rate 60 /min Sunil King RETAIL ACCOUNT REPRESENTATIVE.SPINNING LATHE OPERATOR HYDRAULIC Work Phone: [facility] 11-26-2022 18:38-0500 Respiratory rate 18 /min Sunil De Leon RETAIL ACCOUNT REPRESENTATIVE.SPINNING LATHE OPERATOR HYDRAULIC Work Phone: [facility] 11-26-2022 18:38-0500 SaO2% (BldA) [Mass fraction] 99 % Sunil De Leon RETAIL ACCOUNT REPRESENTATIVE.SPINNING LATHE OPERATOR HYDRAULIC Work Phone: [facility] 11-26-2022 18:38-0500 Systolic blood pressure 144 mm[Hg] Sunil De Leon RETAIL ACCOUNT REPRESENTATIVE.SPINNING LATHE OPERATOR HYDRAULIC Work Phone: [facility] Encounters Encounter Date Encounter Type Care Provider Facility Start: 10-24-2025 ambulatory Sena Salmon STOPPER SETTER Facility :[facility] Start: 09-27-2025 End: 09-27-2025 ambulatory Sena Salmon STOPPER SETTER Facility:[facility] Start: 08-12-2025 End: 08-12-2025 ambulatory [facility] Start: 08-12-2025 End: 08-12-2025 Office outpatient visit 15 minutes Jazzmine Christensen MD Work Phone: [facility] Comment on above: Focal epilepsy (CMS/ HCC) (HCC) (Primary Dx); Migraine without aura and without status migrainosus, not intractable Start: 04-19-2025 End: 06-14-2025 Telephone encounter Jazzmine Christensen MD Work Phone: [facility] Comment on above: Forms/questionnaires ([facility] Statement ) Start: 04-12-2025 End: 04-12-2025 Subsequent hospital visit by physician Xr [facility] [place] Work Phone: Radiology Comment on above: Acute cough [R05.1] Start: 04-12-2025 End: 04-12-2025 Patient encounter procedure Kari West APRN.SPINNING LATHE OPERATOR HYDRAULIC Work Phone: [facility] Comment on above: Acute cough (Primary Dx) Start: 04-12-2025 End: 04-12-2025 ambulatory KARI BRETT Facility:[facility] Start: 04-09-2025 End: 04-09-2025 ambulatory [facility] Facility:[facility] Start: 03-23-2025 End: 05-23-2025 Follow-up encounter Inderjit Jacob APRN.SPINNING LATHE OPERATOR HYDRAULIC Work Phone: [facility] Start: 03-22-2025 End: 03-22-2025 Office outpatient visit 25 minutes Suzette CASTRO Work Phone: [facility] Comment on above: URI, acute (Primary Dx) Start: 03-22-2025 End: 03-22-2025 ambulatory [facility] Facility:[facility] Start: 08-11-2024 End: 08-11-2024 Office outpatient visit 15 minutes Jazzmine Christensen MD Work Phone: [facility] Comment on above: Focal epilepsy (CMS/ HCC) (HCC) (Primary Dx); Migraine without aura and without status migrainosus, not intractable Start: 05-30-2024 End: 05-30-[address] [facility] Facility:[facility] Start: 05-30-2024 End: 05-30-2024 Patient encounter procedure Sunil De Leon APRN.SPINNING LATHE OPERATOR HYDRAULIC Work Phone: [facility] Comment on above: Rash (Primary Dx) Start: 02-24-2024 End: 02-24-2024 ambulatory [facility] Work Phone: Start: 02-24-2024 End: 02-24-2024 Patient encounter procedure [facility] Start: 11-25-2023 End: 11-25-2023 ambulatory [facility] Work Phone: Start: 11-25-2023 End: 11-25-2023 Patient encounter procedure [facility] Work Phone: Start: 09-22-2023 Refill Jazzmine Christensen MD Work Phone: [facility] Start: 08-25-2023 End: 08-25-2023 Office outpatient visit 25 minutes Jazzmine Christensen MD Work Phone: [facility] Comment on above: Focal epilepsy (CMS/ HCC) (HCC) (Primary Dx); Dandy Walker cyst (HCC) Start: 04-09-2023 End: 04-09-2023 Subsequent hospital visit by physician Xr [facility] Work Phone: Radiology Comment on above: Acute cough [R05.1] Start: 04-09-2023 End: 04-09-2023 Patient encounter procedure Sona Acevedo PA-C Work Phone: [facility] Comment on above: Acute cough (Primary Dx) Start: 11-26-2022 End: 11-26-2022 Subsequent hospital visit by physician Xr [facility] Work Phone: Radiology Comment on above: Rib pain on right si de [R07.81] Start: 11-26-2022 End: 11-26-2022 Patient encounter procedure Sunil De Leon APRN.CNP Work Phone: [facility] Comment on above: Rib pain on right si de (Primary Dx); Acute midline low back pain without sciatica Start: 07-17-2022 Non-patient / Non-visit Dr. Mikael Chavez Work Phone: [facility] Start: 07-17-2022 End: 07-17-[address] Shyanne Chavez Work Phone: [facility] Work Phone: Start: 07-17-2022 End: 07-17-[address] Shyanne Chavez Work Phone: [facility] Procedures Date Procedure Procedure Detail Performing Clinician Start: 04-12-2025 Radiologic exam ches t 2 views Kari West RETAIL ACCOUNT REPRESENTATIVE.SPINNING LATHE OPERATOR HYDRAULIC Work Phone: Start: 03-22-2025 COVID & INFLUENZA A/ B & RSV PCR, ROUTINE Suzette CASTRO Work Phone: Start: 04-09-2023 Radiologic exam ches t 2 views Sona Acevedo PA-C Work Phone: Start: 11-26-2022 Radex ribs uni w/posteroant ch minimum 3 views Sunil De Leon APRN.SPINNING LATHE OPERATOR HYDRAULIC Work Phone: Start: 11-26-2022 Culture bacterial quanttative colony count urine Sunil De Leon RETAIL ACCOUNT REPRESENTATIVE.SPINNING LATHE OPERATOR HYDRAULIC Work Phone: Start: 11-26-2022 Urnls dip stick/tabl et rgnt auto w/o microscopy Sunil De Leon RETAIL ACCOUNT REPRESENTATIVE.SPINNING LATHE OPERATOR HYDRAULIC Work Phone: Start: 02-08-2006 Lipid 1996 panel - S lonny or Plasma Sunil De Leon RETAIL ACCOUNT REPRESENTATIVE.SPINNING LATHE OPERATOR HYDRAULIC Work Phone: Plan of Treatment Date Care Activity Detail Author Start: 2042 RSV Immunization for Adults (1 - 1-dose 75+ series) RSV Immunization for Adults (1 - 1-dose 75+ series) [facility] Start: 04-09-2028 Diabetes Screening Diabetes Screenin g [facility] Start: 2027 RSV Immunization age d 60 or older (1 - 1-dose 60+ series) RSV Immunization aged 60 or older (1 - 1-dose 60+ series) [facility] Start: 09-26-2026 DTaP/Tdap/Td Vaccine s (2 - Td or Tdap) DTaP/Tdap/Td Vaccines (2 - Td or Tdap) [facility] Start: 09-26-2026 Urine microalbumin profile DTaP,Tdap,Td Vaccine (2 - Td or Tdap) [facility] Start: 08-11-2026 End: 08-11-2026 Patient encounter procedure 08/11/2026 8:00 AM EDT Office Visit [facility] [address] [place] [phone] Jazzmine Christensen MD [address] [place] [id number] [facility] Start: 08-12-2025 End: 08-12-2025 Patient encounter procedure 08/12/2025 8:00 AM EDT Office Visit [facility] [address] [place] [phone] Jazzmine Christensen MD [address] [address] [facility] Start: 08-01-2025 COVID-19 Vaccine ( season) COVID-19 Vaccine ( season) [facility] Start: 08-01-2025 Influenza vaccination [facility] Start: 04-04-2025 End: 08-11-2025 Basic metabolic 1998 panel - Serum or Plasma Basic metabolic panel Lab Routine Focal epilepsy (CMS/HCC) (HCC) Migraine without aura and without status migrainosus, not intractable Expected: 04/04/2025 (Approximate), Expires: 08/11/2025 [facility] Comment on above: Expected: 04/04/2025 (Approximate), Expires: 08/11/2025 Start: 04-04-2025 End: 08-11-2025 Topiramate level Topiramate level Lab Routine Focal epilepsy (CMS/HCC) (HCC) Migraine without aura and without status migrainosus, not intractable Expected: 04/04/2025 (Approximate), Expires: 08/11/2025 [facility] Work Phone: Comment on above: Expected: 04/04/2025 (Approximate), Expires: 08/11/2025 Start: 08-11-2024 End: 08-11-2024 Patient encounter procedure 08/11/2024 8:00 AM EDT Office Visit [facility] [address] [place] [phone] Jazzmine Christensen MD [address] [place] [address] [facility] Start: 08-01-2024 COVID-19 Vaccine () COVID-19 Vaccine () [facility] Start: 08-01-2024 Covid-19 Vaccine () Covid-19 Vaccine () [facility] Start: 08-01-2024 Influenza vaccination C [facility] Start: 12-01-2023 Behavioral Health Screening Behavioral Health Screening [facility] Start: 08-25-2023 End: 08-25-2024 Comprehensive metabolic 1998 panel - Serum or Plasma Comprehensive metabolic panel Lab Routine Focal epilepsy (CMS/HCC) (HCC) Expected: 08/25/2023 (Approximate), Expires: 08/25/2024 [facility] Comment on above: Expected: 08/25/2023 (Approximate), Expires: 08/25/2024 Start: 08-25-2023 End: 08-25-2024 Topiramate level Topiramate level Lab Routine Focal epilepsy (CMS/HCC) (HCC) Expected: 08/25/2023 (Approximate), Expires: 08/25/2024 [facility] Work Phone: Comment on above: Expected: 08/25/2023 (Approximate), Expires: 08/25/2024 Start: 08-01-2023 Covid-19 Vaccine () Covid-19 Vaccine () [facility] Start: 08-01-2023 Influenza vaccination [facility] Start: 12-01-2022 DEPRESSION ASSESSMENT DEPRESSION ASS ESSMENT [facility] Start: 08-01-2022 Influenza vaccination INFLUENZA (#1) [facility] Start: 12-01-2021 DEPRESSION ASSESSMENT DEPRESSION ASS ESSMENT [facility] Start: 2017 Pneumococcal Vaccine : 50+ (1 of 1 - PCV) Pneumococcal Vaccine: 50+ (1 of 1 - PCV) [facility] Start: 2017 Pneumococcal Vaccine : 50+ Years (1 of 1 - PCV) Pneumococcal Vaccine: 50+ Years (1 of 1 - PCV) [facility] Start: 2017 SHINGRIX VACCINE (1 of 2) SHINGRIX VACCINE (1 of 2) [facility] Start: 2017 Zoster Vaccines (1 o f 2) Zoster Vaccines (1 of 2) [facility] Start: 2012 COLOGUARD (FIT-DNA) COLOGUARD (FIT-D NA) [facility] Start: 2012 Colonoscopy COLONOSCOPY [facility] Start: 2012 COLORECTAL CANCER SCREENING COLORECTAL CANCER SCREENING [facility] Start: [address] COLONOGRAPHY [facility] Start: 2012 DIABETES SCREEN DIABETES SCREEN [facility] Start: 2012 Diabetes Screening Diabetes Screenin g [facility] Start: 2012 FECAL OCCULT BLOOD FECAL OCCULT BLOO D [facility] Start: 2012 Lipid panel Lipid Screening [facility] Start: 2012 LIPID SCREEN LIPID SCREEN [facility] Start: 2012 Screening for malign ant neoplasm of colon [facility] Start: 2012 SIGMOIDOSCOPY SIGMOIDOSCOPY [facility] Start: 2007 Mammography MAMMOGRAM [facility] Start: 2007 Screening for malign ant neoplasm of breast [facility] Start: 1997 HPV TESTING HPV TESTING [facility] Start: 1997 Screening for malign ant neoplasm of cervix [facility] Start: 1988 PAP TESTING PAP TESTING [facility] Start: 1988 Screening for malign ant neoplasm of cervix [facility] Start: 1986 Hepatitis B Vaccine (1 of 3 - 19+ 3-dose series) Hepatitis B Vaccine (1 of 3 - 19+ 3-dose series) [facility] Start: 1986 Hepatitis B Vaccines (1 of 3 - 19+ 3-dose series) Hepatitis B Vaccines (1 of 3 - 19+ 3-dose series) [facility] Start: 1986 Urine microalbumin profile DTAP,TDAP,TD (1 - Tdap) [facility] Start: 1985 Anxiety Screening Anxiety Screening [facility] Start: 1985 Depression Screening Depression Scre ening [facility] Start: 1985 HEPATITIS C SCREENING HEPATITIS C [facility] Start: 1985 Hepatitis C screening Hepatitis C [facility] Start: 1985 HIV SCREENING HIV SCREENING [facility] Start: 1985 HIV screening HIV Screening [facility] Start: 1979 Depression Screening Depression Scre ening [facility] Start: 1968 MMR Vaccines (1 of 1 - Standard series) MMR Vaccines (1 of 1 - Standard series) [facility] Start: 04-24-1968 COVID-19 VACCINE (#1) COVID-19 VACCI NE (#1) [facility] Start: 1967 HEPATITIS B (1 of 3 - 3-dose series) HEPATITIS B (1 of 3 - 3-dose series) [facility] Start: 1967 Hepatitis B Vaccines (1 of 3 - 3-dose series) Hepatitis B Vaccines (1 of 3 - 3-dose series) [facility] Start: 1967 HIV screening HIV Screening [facility] Start: 1967 Screening for malign ant neoplasm of colon [facility] Payers Date Payer Category Payer Self-pay [id number] 2024 Commercial [facility] [employer] [id number] 2024 Unknown [id number] 2023 Private Health Insurance [id number] 2021 Unknown [id number] 2009 Unknown [place] [id number] Unknown [facility] [id number] Unknown [id number] Unknown [id number] Social History Date Type Detail Facility Start: 09-16-2018 End: 09-16-2018 Tobacco smoking status PRIS Unknown if ever smoked [facility] Start: 1965 Sex Assigned At Female [facility] Start: 11-26-2022 [facility] Start: 11-26-2022 Tobacco use and exposure Smokeless tobacco non-user [facility] Start: 11-26-2022 End: 03-22-2025 Alcohol intake Current non-drinker of alcohol (finding) [facility] Start: 1965 Sex Assigned At Not on file [facility] Start: 08-25-2023 End: 08-12-2025 Alcohol intake Ex-drinker (finding) [facility] Start: 08-20-2022 End: 08-12-2025 History of Social function [facility] Start: 08-20-2022 End: 08-12-2025 Tobacco use panel [facility] Start: 08-15-2023 End: 08-25-2023 Exposure to SARS-CoV-2 (event) Not sure [facility] Start: 07-01-2022 Sex Female (finding) [facility] Clinical Notes 11-26-2022 to 08-12-2025 Jazzmine Christensen MD - 08/12/2025 8:00 AM EDTTelephone Encounter - Jazzmine Christensen MD - 04/27/2025 9:57 AM EDTTelephone Encounter - Jazzmine Christensen MD - 04/27/2025 9:57 AM EDTPatient Instructions Note Date & Type Note Facility 08-12-2025 History of Presen t illness Narrative Images from the original note were not included. [facility] [address] [facility] [address] Dept: [phone] Dept Loc: [phone] Visit type: Established Patient Reason for Visit: Follow-up and Seizures Assessment and Plan 1. Focal epilepsy (CMS/HCC) (HCC) 2. Migraine without aura and without status migrainosus, not intractable Subjective HPI: She denies seizures. She has not had a seizure for years. She is tolerating the topiramate. She reports that migraine frequency is very low and many times she has such mild headaches that she just takes Motrin and that is good enough but the rizatriptan. REVIEW OF SYSTEMS: Review of Systems Constitutional: Negative for appetite change, chills, diaphoresis, fever and unexpected weight change. HENT: Negative for dental problem and mouth sores. Eyes: Negative for discharge and itching. Respiratory: Negative for chest tightness. Cardiovascular: Negative for chest pain and leg swelling. Gastrointestinal: Negative for rectal pain and vomiting. Endocrine: Negative for polydipsia, polyphagia and polyuria. Genitourinary: Negative for decreased urine volume, flank pain and genital sores. Musculoskeletal: Negative for arthralgias. Skin: Negative for color change. Allergic/Immunologic: Negative for food allergies and immunocompromised state. Neurological: Positive for headaches. Negative for seizures. Hematological: Negative for adenopathy. Does not bruise/bleed easily. Psychiatric/Behavioral: Negative for agitation, behavioral problems, decreased concentration, sleep disturbance and suicidal ideas. No Known Allergies Current Outpatient Medications: Ascorbic Acid (vitamin C) 1000 MG tablet, Take 1,000 mg by mouth daily., Disp: , Rfl: Multiple Vitamins-Minerals (multivitamin with minerals) tablet, Take 1 tablet by mouth daily., Disp: , Rfl: rizatriptan WIRELESS ARCHITECT (Maxalt-WIRELESS ARCHITECT) 10 MG disintegrating tablet, Take 1 tablet (10 mg) by mouth Once as needed for migraine. May repeat in 2 hours if unresolved. Do not exceed 20 mg in 24 hours., Disp: 9 tablet, Rfl: 3 topiramate (Topamax) 100 MG tablet, Take 1 tablet (100 mg) by mouth 2 times daily., Disp: 120 tablet, Rfl: 11 Past Medical History: Diagnosis Date Dandy Walker cyst (HCC) Frozen shoulder Headache Seizures (HCC) Social History Tobacco Use Smoking status: Never Smokeless tobacco: Never Substance Use Topics Alcohol use: Not Currently Past Surgical History: Procedure Laterality Date BUNIONECTOMY No family history on file. Objective Vitals: BP 131/82 (BP Location: Left arm, Patient Position: Sitting, BP Cuff Size: Adult) Pulse 63 Ht 5' 4" (1.626 m) Wt 144 lb 3.2 oz (65.4 kg) BMI 24.75 kg/m General Appearance: Patient is in no apparent distress. Head is normocephalic, atraumatic Cardiovascular: Regular rate and rhythm. No heart murmurs. No carotid bruit Neurologic: Mentation: Alert and oriented x 3 [address] person, place and time. Speech and Language: Speech and language normal Concentration and Attention: Concentration normal Memory: Memory grossly normal Fund of Knowledge: Fund of knowledge normal Cranial Nerves: II, III, IV, V, , VII, VIII, IX, X, XI, XII examined and were intact. Motor: Strength: Strength 5 out of 5 with normal tone Alternating Movements: Normal Cogwheel Rigidity: None Tone: Tone is normal Tremor / Involuntary Movements: None Coordination: Normal coordination upper and lower extremities Gait and Station: Station is normal. Gait is normal Data Reviewed and Summarized DIAGNOSTIC TESTING TOPIRAMATE BLD Order: [id number] Component Ref Range & Units 4 mo ago Topiramate 5.0 - 20.0 ug/mL 9.7 Resulting Agency [facility] Specimen Collected: 04/09/25 10:30 IMPRESSION and PLAN: Diagnosis Plan 1. Focal epilepsy (CMS/HCC) (HCC) 2. Migraine without aura and without status migrainosus, not intractable No seizures for years. She is to continue topiramate Prn rizatriptan. Jazzmine Christensen MD I spent 20 minutes caring for this patient today, reviewing labs, records, seeing the patient, documenting in the record and arranging for studies. documented in this encounter [facility] 04-27-2025 Telephone encounter Note done [facility] 04-27-2025 Miscellaneous Notes done Name of caller: Aarti Contact phone number: [phone] Relationship to Patient: patient Provider: Dr Christensen Practice: [facility] Chief Complaint/Reason for Call: Aarti called in to check status of BMV form. Patient asked for completed paperwork to be faxed to [facility] (info on printed form), and then she wished to be notified once office has sent the form. Please advise. Best time of day caller can be reached: any Patient advised that office/PCP has 24-48 business hours to return their call: Yes Printed and put on providers desk Name of caller: Aarti Contact phone number: [phone] Relationship to Patient: Patient Provider: Dr Christensen Practice: Neurology Chief Complaint/Reason for Call: Pt called requesting status of BMV form. Please send [employer] message to advise. Form has to be returned to [facility] by 04/29/25 to avoid license suspension for pt. Best time of day caller can be reached: Any Patient advised that office/PCP has 24-48 business hours to return their call: Yes documented in this encounter [facility] 04-26-2025 Telephone encounter Note Name of caller: Aarti Contact phone number: [phone] Relationship to Patient: patient Provider: Dr Christensen Practice: [facility] Neuro Chief Complaint/Reason for Call: Aarti called in to check status of BMV form. Patient asked for completed paperwork to be faxed to [facility] (info on printed form), and then she wished to be notified once office has sent the form. Please advise. Best time of day caller can be reached: any Patient advised that office/PCP has 24-48 business hours to return their call: Yes [facility] 04-20-2025 Telephone encounter Note Printed and put on providers desk [facility] 04-19-2025 Telephone encounter Note Name of caller: Aarti Contact phone number: [phone] Relationship to Patient: Patient Provider: Dr Chritsensen Practice: Neurology Chief Complaint/Reason for Call: Pt called requesting status of BMV form. Please send [employer] message to advise. Form has to be returned to [facility] by 04/29/25 to avoid license suspension for pt. Best time of day caller can be reached: Any Patient advised that office/PCP has 24-48 business hours to return their call: Yes [facility] 04-12-2025 History of Presen t illness Narrative Radiology Service Progress Note PATIENT NAME: Aarti Conner DATE OF SERVICE: April 12, 2025 TIME: 7:25 PM PATIENT IDENTITY VERIFICATION COMPLETED USING TWO (2) IDENTIFIERS: Name and Date of confirmed by patient verbally. FALL SCREENING: Has the patient had 2 falls in the last year or 1 fall with injury or currently using an Ambulatory Assistive Device (Walker, Cane, Wheelchair, Crutches, etc.)? No PATIENT GENDER DATA: Assigned female at . status: : No status: NO. PATIENT RELEVANT IMPLANT DATA REVIEWED: Not Applicable PATIENT PRESENTS WITH AN IMPLANTABLE OR ATTACHED AUTOMOTIVE HEAVY MECHANIC: No RADIOLOGY DEPARTMENT: General X-ray: Exam(s) Completed: Chest X-Ray PERIPHERAL IV DATA: Not applicable SIGNED BY: Christian Joe April 12, 2025 7:25 PM documented in this encounter [facility] 04-12-2025 Note HNO ID: [id number] Author: SUE HENDRIX Tech Service: ? Author Type: Technologist Type: Progress Notes Filed: 04/12/2025 19:31 Note Text: Radiology Service Progress Note PATIENT NAME: Aarti Conner DATE OF SERVICE: April 12, 2025 TIME: 7:25 PM PATIENT IDENTITY VERIFICATION COMPLETED USING TWO (2) IDENTIFIERS: Name and Date of confirmed by patient verbally. FALL SCREENING: Has the patient had 2 falls in the last year or 1 fall with injury or currently using an Ambulatory Assistive Device (Walker, Cane, Wheelchair, Crutches, etc.)? No PATIENT GENDER DATA: Assigned female at . status: : No status: NO. PATIENT RELEVANT IMPLANT DATA REVIEWED: Not Applicable PATIENT PRESENTS WITH AN IMPLANTABLE OR ATTACHED AUTOMOTIVE HEAVY MECHANIC: No RADIOLOGY DEPARTMENT: General X-ray: Exam(s) Completed: Chest X-Ray PERIPHERAL IV DATA: Not applicable SIGNED BY: Christian Joe April 12, 2025 7:25 PM [facility] 04-12-2025 Note HNO ID: [id number] Author: KARI WEST APRN.SPINNING LATHE OPERATOR HYDRAULIC Service: ? Author Type: Nurse Practitioner Type: Progress Notes Filed: 04/12/2025 20:10 Note Text: Subjective Patient ID: Aarti is a 59 year old female who presents for Cough (Chest congestion and tightness x1 month, Covid over Easter weekend). The history is provided by the patient. No printed circuit board panels trimmer was used. Patient presents to clinic with cough and congestion x1m h/o seizure and migraines H/o covid positive last month +nonprod cough +chest congestion +BARTON 2/10 States feels like she needs to cough mucus up but cannot Denies chills, fever, SOB Denies OTC meds PAST MEDICAL HISTORY Diagnosis Date Migraine with aura, without mention of intractable migraine without mention of status migrainosus No past surgical history on file. ALLERGIES Patient has no known allergies. MEDICATIONS topiramate (TOPAMAX) 100 mg tablet ascorbic acid, vitamin C, (VITAMIN C) 250 mg tablet Take 500 mg by mouth. mv-min/folic/vit K/lycop/coQ10 (DAILY MULTIVITAMIN ORAL) Take by mouth. SUMAtriptan (IMITREX) 100 mg tablet Take by mouth. benzonatate (TESSALON PERLE) 100 mg capsule Take 1 capsule by mouth three times a day as needed. (Patient not taking: Reported on 04/12/2025) ibuprofen (MOTRIN) 200 mg tablet Take by mouth. (Patient not taking: Reported on 04/12/2025) FAMILY HISTORY Problem Relation Age of Onset Heart Father Diabetes Paternal Grandmother Social History Tobacco Use Smoking status: Never Smokeless tobacco: Never Substance Use Topics Alcohol use: No Drug use: No Objective BP 159/81 Pulse (!) 56 Temp 37.2 ?C (99 ?F) Resp 18 Wt 65.9 kg (145 lb 4.5 oz) LMP 01/01/2006 SpO2 100% Physical Exam Constitutional: Appearance: Normal appearance. HENT: Head: Normocephalic. Right Ear: Hearing, tympanic membrane, ear canal and external ear normal. Left Ear: Hearing, tympanic membrane, ear canal and external ear normal. Nose: Nose normal. Mouth/Throat: Mouth: Mucous membranes are moist. Eyes: Pupils: Pupils are equal, round, and reactive to light. Cardiovascular: Rate and Rhythm: Normal rate. Pulses: Normal pulses. Heart sounds: Normal heart sounds. Pulmonary: Effort: Pulmonary effort is normal. Breath sounds: Normal air entry. No decreased air movement. No decreased breath sounds. Abdominal: General: Bowel sounds are normal. Palpations: Abdomen is soft. Musculoskeletal: General: Normal range of motion. Cervical back: Normal range of motion. Skin: General: Skin is warm and dry. Capillary Refill: Capillary refill takes less than 2 seconds. Neurological: General: No focal deficit present. Mental Status: She is alert and oriented to person, place, and time. Psychiatric: Mood and Affect: Mood normal. Behavior: Behavior normal. Thought Content: Thought content normal. Judgment: Judgment normal. Assessment AND Plan Acute cough Orders: XR CHEST 2V FRONTAL/LAT; Future ASSESSMENT/PLAN: 1. Acute cough - ICD9: 786.2, ICD10: R05.1 X one month Progressively worsening - XR CHEST 2V FRONTAL/LAT-negative Printed RX Doxy patient can take given continuing symptoms Yudelka Wright Patient has had cough x one month Worsening Xray negative While walking out patient calls provider " camilo maya" TEACHING PROVIDER (Physician/PA/RETAIL ACCOUNT REPRESENTATIVE) NOTE OF PERSONAL INVOLVEMENT IN CARE: I have personally seen and examined the patient and performed the medical decision-making components. I have reviewed the Advanced Practice Registered Nurse (RETAIL ACCOUNT REPRESENTATIVE) Student's documentation and verified the findings in the note as written. Any additions or changes are noted in bold/italics. Signature: Kari Brett Date: 04/12/2025 Time: 8:09 PM [facility] 04-12-2025 History of Presen t illness Narrative Subjective Patient ID: Aarti is a 59 year old female who presents for Cough (Chest congestion and tightness x1 month, Covid over Easter weekend). The history is provided by the patient. No printed circuit board panels trimmer was used. Patient presents to clinic with cough and congestion x1m h/o seizure and migraines H/o covid positive last month +nonprod cough +chest congestion +BARTON 2/10 States feels like she needs to cough mucus up but cannot Denies chills, fever, SOB Denies OTC meds PAST MEDICAL HISTORY Diagnosis Date Migraine with aura, without mention of intractable migraine without mention of status migrainosus No past surgical history on file. ALLERGIES Patient has no known allergies. MEDICATIONS topiramate (TOPAMAX) 100 mg tablet ascorbic acid, vitamin C, (VITAMIN C) 250 mg tablet Take 500 mg by mouth. mv-min/folic/vit K/lycop/coQ10 (DAILY MULTIVITAMIN ORAL) Take by mouth. SUMAtriptan (IMITREX) 100 mg tablet Take by mouth. benzonatate (TESSALON PERLE) 100 mg capsule Take 1 capsule by mouth three times a day as needed. (Patient not taking: Reported on 04/12/2025) ibuprofen (MOTRIN) 200 mg tablet Take by mouth. (Patient not taking: Reported on 04/12/2025) FAMILY HISTORY Problem Relation Age of Onset Heart Father Diabetes Paternal Grandmother Social History Tobacco Use Smoking status: Never Smokeless tobacco: Never Substance Use Topics Alcohol use: No Drug use: No Objective BP 159/81 Pulse (!) 56 Temp 37.2 C (99 F) Resp 18 Wt 65.9 kg (145 lb 4.5 oz) LMP 01/01/2006 SpO2 100% Physical Exam Constitutional: Appearance: Normal appearance. HENT: Head: Normocephalic. Right Ear: Hearing, tympanic membrane, ear canal and external ear normal. Left Ear: Hearing, tympanic membrane, ear canal and external ear normal. Nose: Nose normal. Mouth/Throat: Mouth: Mucous membranes are moist. Eyes: Pupils: Pupils are equal, round, and reactive to light. Cardiovascular: Rate and Rhythm: Normal rate. Pulses: Normal pulses. Heart sounds: Normal heart sounds. Pulmonary: Effort: Pulmonary effort is normal. Breath sounds: Normal air entry. No decreased air movement. No decreased breath sounds. Abdominal: General: Bowel sounds are normal. Palpations: Abdomen is soft. Musculoskeletal: General: Normal range of motion. Cervical back: Normal range of motion. Skin: General: Skin is warm and dry. Capillary Refill: Capillary refill takes less than 2 seconds. Neurological: General: No focal deficit present. Mental Status: She is alert and oriented to person, place, and time. Psychiatric: Mood and Affect: Mood normal. Behavior: Behavior normal. Thought Content: Thought content normal. Judgment: Judgment normal. \\ Assessment & Plan Acute cough Orders: XR CHEST 2V FRONTAL/LAT; Future ASSESSMENT/PLAN: 1. Acute cough - ICD9: 786.2, ICD10: R05.1 X one month Progressively worsening - XR CHEST 2V FRONTAL/LAT-negative Printed RX Doxy patient can take given continuing symptoms Yudelka Wright Patient has had cough x one month Worsening Xray negative While walking out patient calls provider " [email or web address] zulma" TEACHING PROVIDER (Physician/PA/RETAIL ACCOUNT REPRESENTATIVE) NOTE OF PERSONAL INVOLVEMENT IN CARE: I have personally seen and examined the patient and performed the medical decision-making components. I have reviewed the Advanced Practice Registered Nurse (RETAIL ACCOUNT REPRESENTATIVE) Student's documentation and verified the findings in the note as written. Any additions or changes are noted in bold/italics. Signature: Kari West Date: 04/12/2025 Time: 8:09 PM documented in this encounter [facility] 03-22-2025 Note SARS-COV-2 (AGENT OF COVID-19) RNA: Detected INFLUENZA A RNA: Not detected INFLUENZA B RNA: Not detected RESPIRATORY SYNCYTIAL VIRUS (RSV) RNA: Not detected [facility] Comment on above: Performed By: #### [id number] #### [facility] CLIA [id number] [address] [place] [address] [facility] 03-22-2025 Note HNO ID: [id number] Author: SUZETTE WOLFE PA Service: ? Author Type: Physician Nuclear Power Reactor Operator Type: Progress Notes Filed: 03/22/2025 14:58 Note Text: [facility] Subjective Aarti Conner is a 59 year old female. Patient presents with: Cough: Chills, fever, bodyaches, nausea, BARTON x3 days HPI 59-year-old female presents for cough, chills, fever, body aches, runny nose, nausea, headache x 3 days. Patient states she has been sick for the past few days. She has a dry cough. She denies any chest pain or shortness of breath. No history of COPD or asthma. She has a little bit of nasal congestion. She has had chills, body aches, fever. She has taken ibuprofen for symptoms. sick with similar symptoms. No other complaint PAST MEDICAL HISTORY Diagnosis Date Migraine with aura, without mention of intractable migraine without mention of status migrainosus No past surgical history on file. ALLERGIES Patient has no known allergies. MEDICATIONS topiramate (TOPAMAX) 100 mg tablet ascorbic acid, vitamin C, (VITAMIN C) 250 mg tablet Take 500 mg by mouth. mv-min/folic/vit K/lycop/coQ10 (DAILY MULTIVITAMIN ORAL) Take by mouth. ibuprofen (MOTRIN) 200 mg tablet Take by mouth. SUMAtriptan (IMITREX) 100 mg tablet Take by mouth. benzonatate (TESSALON PERLE) 100 mg capsule Take 1 capsule by mouth three times a day as needed. FAMILY HISTORY Problem Relation Age of Onset Heart Father Diabetes Paternal Grandmother Social History Tobacco Use Smoking status: Never Smokeless tobacco: Never Substance Use Topics Alcohol use: No Drug use: No Review of Systems Constitutional: Positive for chills and fever. HENT: Positive for congestion. Negative for ear pain and sore throat. Respiratory: Positive for cough. Negative for shortness of breath. Cardiovascular: Negative for chest pain. Gastrointestinal: Negative for diarrhea and vomiting. Neurological: Positive for headaches. Objective BP 136/82 Pulse 75 Temp 37.8 ?C (100 ?F) Resp 18 Wt 65.1 kg (143 lb 8.3 oz) LMP 01/01/2006 SpO2 95% Physical Exam Vitals and nursing note reviewed. Constitutional: General: She is not in acute distress. Appearance: Normal appearance. She is not toxic-appearing. HENT: Right Ear: Tympanic membrane and ear canal normal. Left Ear: Tympanic membrane and ear canal normal. Nose: Congestion present. Mouth/Throat: Mouth: Mucous membranes are moist. Pharynx: Oropharynx is clear. Eyes: Conjunctiva/sclera: Conjunctivae normal. Cardiovascular: Rate and Rhythm: Normal rate and regular rhythm. Pulmonary: Effort: Pulmonary effort is normal. Breath sounds: Normal breath sounds. No wheezing, rhonchi or rales. Skin: General: Skin is warm and dry. Neurological: Mental Status: She is alert. {ASSESSMENT/PLAN: 1. URI, acute - ICD9: 465.9, ICD10: J06.9 - Discussed viral etiology and rationale for treatment. - Symptomatic treatment with prn analgesia - Supportive care with fluids and rest - Rx Tessalon Perle - COVID AND INFLUENZA A/B AND RSV PCR, ROUTINE - Out of window for Tamiflu Diagnosis and treatment plan were discussed and questions were answered to the patient's satisfaction. Pt acknowledged understanding of concepts and follow up plan. Specific signs and symptoms that would indicate the need for higher level of care were discussed in detail warranting prompt ER evaluation. MATTHEW Alexander History and Record Review External record(s) reviewed: prior outpatient record. Systemic symptoms present included: fever Differential Diagnoses - Viral URI is more likely for the following reason(s): suggested by HANDP - Pneumonia is less likely for the following reason(s): HANDP not suggestive Disposition The patient was discharged. OTC Medications were advised: May continue Tylenol/Motrin for fever Procedures [facility] 03-22-2025 History of Presen t illness Narrative [facility] Subjective Aarti Conner is a 59 year old female. Patient presents with: Cough: Chills, fever, bodyaches, nausea, BARTON x3 days HPI 59-year-old female presents for cough, chills, fever, body aches, runny nose, nausea, headache x 3 days. Patient states she has been sick for the past few days. She has a dry cough. She denies any chest pain or shortness of breath. No history of COPD or asthma. She has a little bit of nasal congestion. She has had chills, body aches, fever. She has taken ibuprofen for symptoms. sick with similar symptoms. No other complaint PAST MEDICAL HISTORY Diagnosis Date Migraine with aura, without mention of intractable migraine without mention of status migrainosus No past surgical history on file. ALLERGIES Patient has no known allergies. MEDICATIONS topiramate (TOPAMAX) 100 mg tablet ascorbic acid, vitamin C, (VITAMIN C) 250 mg tablet Take 500 mg by mouth. mv-min/folic/vit K/lycop/coQ10 (DAILY MULTIVITAMIN ORAL) Take by mouth. ibuprofen (MOTRIN) 200 mg tablet Take by mouth. SUMAtriptan (IMITREX) 100 mg tablet Take by mouth. benzonatate (TESSALON PERLE) 100 mg capsule Take 1 capsule by mouth three times a day as needed. FAMILY HISTORY Problem Relation Age of Onset Heart Father Diabetes Paternal Grandmother Social History Tobacco Use Smoking status: Never Smokeless tobacco: Never Substance Use Topics Alcohol use: No Drug use: No Review of Systems Constitutional: Positive for chills and fever. HENT: Positive for congestion. Negative for ear pain and sore throat. Respiratory: Positive for cough. Negative for shortness of breath. Cardiovascular: Negative for chest pain. Gastrointestinal: Negative for diarrhea and vomiting. Neurological: Positive for headaches. Objective BP 136/82 Pulse 75 Temp 37.8 C (100 F) Resp 18 Wt 65.1 kg (143 lb 8.3 oz) LMP 01/01/2006 SpO2 95% Physical Exam Vitals and nursing note reviewed. Constitutional: General: She is not in acute distress. Appearance: Normal appearance. She is not toxic-appearing. HENT: Right Ear: Tympanic membrane and ear canal normal. Left Ear: Tympanic membrane and ear canal normal. Nose: Congestion present. Mouth/Throat: Mouth: Mucous membranes are moist. Pharynx: Oropharynx is clear. Eyes: Conjunctiva/sclera: Conjunctivae normal. Cardiovascular: Rate and Rhythm: Normal rate and regular rhythm. Pulmonary: Effort: Pulmonary effort is normal. Breath sounds: Normal breath sounds. No wheezing, rhonchi or rales. Skin: General: Skin is warm and dry. Neurological: Mental Status: She is alert. {ASSESSMENT/PLAN: 1. URI, acute - ICD9: 465.9, ICD10: J06.9 - Discussed viral etiology and rationale for treatment. - Symptomatic treatment with prn analgesia - Supportive care with fluids and rest - Rx Tessalon Perle - COVID & INFLUENZA A/B & RSV PCR, ROUTINE - Out of window for Tamiflu Diagnosis and treatment plan were discussed and questions were answered to the patient's satisfaction. Pt acknowledged understanding of concepts and follow up plan. Specific signs and symptoms that would indicate the need for higher level of care were discussed in detail warranting prompt ER evaluation. MATTHEW Alexander History and Record Review External record(s) reviewed: prior outpatient record. Systemic symptoms present included: fever Differential Diagnoses - Viral URI is more likely for the following reason(s): suggested by H&P - Pneumonia is less likely for the following reason(s): H&P not suggestive Disposition The patient was discharged. OTC Medications were advised: May continue Tylenol/Motrin for fever Procedures documented in this encounter [facility] 08-11-2024 History of Presen t illness Narrative Images from the original note were not included. [facility] [address] [facility] [address] Dept: [phone] Dept Loc: [phone] Visit type: Established Patient Reason for Visit: Follow-up and Seizures Assessment and Plan 1. Focal epilepsy (CMS/HCC) (HCC) - topiramate (Topamax) 100 MG tablet; Take 1 tablet (100 mg) by mouth 2 times daily., Starting Fri08/11/2024, Until 10/10/2024, Normal - Topiramate level - Basic metabolic panel 2. Migraine without aura and without status migrainosus, not intractable - rizatriptan WIRELESS ARCHITECT (Maxalt-WIRELESS ARCHITECT) 10 MG disintegrating tablet; Take 1 tablet (10 mg) by mouth Once as needed for migraine. May repeat in 2 hours if unresolved. Do not exceed 20 mg in 24 hours., Starting Fri08/11/2024, Until Fri09/10/2024 at 2359, Normal - topiramate (Topamax) 100 MG tablet; Take 1 tablet (100 mg) by mouth 2 times daily., Starting Fri08/11/2024, Until 10/10/2024, Normal - Topiramate level - Basic metabolic panel Subjective HPI: She denies seizures. She has not had a seizure for years. She is tolerating the topiramate. She has had more headaches recently but her mother in law had to be placed in alf and then . They were not bad, and one motrin sufficed to stop it. REVIEW OF SYSTEMS: Review of Systems Constitutional: Negative for appetite change, chills, diaphoresis, fever and unexpected weight change. HENT: Negative for dental problem and mouth sores. Eyes: Negative for discharge and itching. Respiratory: Negative for chest tightness. Cardiovascular: Negative for chest pain and leg swelling. Gastrointestinal: Negative for rectal pain and vomiting. Endocrine: Negative for polydipsia, polyphagia and polyuria. Genitourinary: Negative for decreased urine volume, flank pain and genital sores. Musculoskeletal: Negative for arthralgias. Skin: Negative for color change. Allergic/Immunologic: Negative for food allergies and immunocompromised state. Neurological: Positive for headaches. Negative for seizures. Hematological: Negative for adenopathy. Does not bruise/bleed easily. Psychiatric/Behavioral: Negative for agitation, behavioral problems, decreased concentration, sleep disturbance and suicidal ideas. No Known Allergies Current Outpatient Medications: rizatriptan WIRELESS ARCHITECT (Maxalt-WIRELESS ARCHITECT) 10 MG disintegrating tablet, Take 1 tablet (10 mg) by mouth Once as needed for migraine. May repeat in 2 hours if unresolved. Do not exceed 20 mg in 24 hours., Disp: 9 tablet, Rfl: 3 topiramate (Topamax) 100 MG tablet, Take 1 tablet (100 mg) by mouth 2 times daily., Disp: 120 tablet, Rfl: 11 Past Medical History: Diagnosis Date Dandy Walker cyst (HCC) Frozen shoulder Headache Seizures (HCC) Social History Tobacco Use Smoking status: Never Smokeless tobacco: Never Substance Use Topics Alcohol use: Not Currently Past Surgical History: Procedure Laterality Date BUNIONECTOMY No family history on file. Objective Vitals: BP 135/80 (BP Location: Right arm, Patient Position: Sitting, BP Cuff Size: Adult) Pulse 61 Ht 5' 4" (1.626 m) Wt 138 lb (62.6 kg) BMI 23.69 kg/m General Appearance: Patient is in no apparent distress. Head is normocephalic, atraumatic Cardiovascular: Regular rate and rhythm. No heart murmurs. No carotid bruit Neurologic: Mentation: Alert and oriented x 3 to person, place and time. Speech and Language: Speech and language normal Concentration and Attention: Concentration normal Memory: Memory grossly normal Fund of Knowledge: Fund of knowledge normal Cranial Nerves: II, III, IV, V, , VII, VIII, IX, X, XI, XII examined and were intact. Motor: Strength: Strength 5 out of 5 with normal tone Alternating Movements: Normal Cogwheel Rigidity: None Tone: Tone is normal Tremor / Involuntary Movements: None Coordination: Normal coordination upper and lower extremities Gait and Station: Station is normal. Gait is normal Data Reviewed and Summarized DIAGNOSTIC TESTING CBC: No results found for: "WBC", "RBC", "HGB", "HCT", "MCV", "MCH", "MCHC", "RDW", "PLT", MPV CMP: No results found for: "NA", "K", "CL", "CO2", "BUN", "CREATININE", "AGRATIO", "LABGLOM", "GLUCOSE", "GLU", "PROT", "CALCIUM", "BILITOT", "ALKPHOS", "AST", "ALT" BMP: No results found for: "NA", "K", "CL", "CO2", "BUN", "CREATININE", "CALCIUM", "LABGLOM", "GLUCOSE", "GLU" PT/INR: No results found for: "PROTIME", "INR" PTT: No results found for: "APTT", "PTT"[APTT} FLP: No results found for: "CHLPL", "TRIG", "HDL", "LDLCALC", "LDLDIRECT" TSH: No results found for: "TSH" VITAMIN B12: No results found for: "[id number]" IMPRESSION and PLAN: Diagnosis Plan 1. Focal epilepsy (CMS/HCC) (HCC) topiramate (Topamax) 100 MG tablet Topiramate level Basic metabolic panel Topiramate level Basic metabolic panel 2. Migraine without aura and without status migrainosus, not intractable rizatriptan WIRELESS ARCHITECT (Maxalt-WIRELESS ARCHITECT) 10 MG disintegrating tablet topiramate (Topamax) 100 MG tablet Topiramate level Basic metabolic panel Topiramate level Basic metabolic panel No seizures for years. She needs to get a topiramate level and CMP in the future. Prn rizatriptan. Jazzmine Chrsitensen MD I spent 20 minutes caring for this patient today, reviewing labs, records, seeing the patient, documenting in the record and arranging for studies. documented in this encounter [facility] 05-30-2024 Note HNO ID: [id number] Author: SUNIL DE LEON APRN.[employer]IN[employer]ING [employer]PERATOR [employer] Service: ? Author Type: Nurse Practitioner Type: Progress Notes Filed: 05/30/2024 09:18 Note Text: Subjective HPI HPI Aarti Conner is a 58 year old female who presents today for CC of itchy rash no left foot. This started 1 month ago. Has tried combo antifungal and steroid cream that worked but only used for short period of time. Symptoms are worsened by nothing. Risk factors none. Denies fever. .Patient presents with: Rash: itching and redness on left foot x end of march PAST MEDICAL HISTORY Diagnosis Date Migraine with aura, without mention of intractable migraine without mention of status migrainosus No past surgical history on file. ALLERGIES Patient has no known allergies. MEDICATIONS topiramate (TOPAMAX) 100 mg tablet ascorbic acid, vitamin C, (VITAMIN C) 250 mg tablet Take 500 mg by mouth. mv-min/folic/vit K/lycop/coQ10 (DAILY MULTIVITAMIN ORAL) Take by mouth. ibuprofen (MOTRIN) 200 mg tablet Take by mouth. SUMAtriptan (IMITREX) 100 mg tablet Take by mouth. FAMILY HISTORY Problem Relation Age of Onset Heart Father Diabetes Paternal Grandmother Social History Tobacco Use Smoking status: Never Smokeless tobacco: Never Substance Use Topics Alcohol use: No Drug use: No ROS Objective Blood pressure 122/78, pulse 86, temperature 36.8 ?C (98.2 ?F), resp. rate 18, weight 61.1 kg (134 lb 11.2 oz), last menstrual period 01/01/2006, SpO2 99%. Physical Exam Constitutional: General: She is not in acute distress. Appearance: She is not toxic-appearing or diaphoretic. HENT: Head: Normocephalic and atraumatic. Pulmonary: Effort: Pulmonary effort is normal. No accessory muscle usage or respiratory distress. Musculoskeletal: Feet: Neurological: Mental Status: She is alert and oriented to person, place, and time. ASSESSMENT/PLAN: 1. Rash - ICD9: 782.1, ICD10: R21 Fungal suspected -use medication as prescribed -follow up if symptoms persist, worsen, change - TERBINAFINE HCL 1 % TOPICAL CREAM Sunil De Leon APRN.[facility] 05-30-2024 History of Presen t illness Narrative Images from the original note were not included. Subjective HPI HPI Aarti Conner is a 58 year old female who presents today for CC of itchy rash no left foot. This started 1 month ago. Has tried combo antifungal and steroid cream that worked but only used for short period of time. Symptoms are worsened by nothing. Risk factors none. Denies fever. .Patient presents with: Rash: itching and redness on left foot x end of march PAST MEDICAL HISTORY Diagnosis Date Migraine with aura, without mention of intractable migraine without mention of status migrainosus No past surgical history on file. ALLERGIES Patient has no known allergies. MEDICATIONS topiramate (TOPAMAX) 100 mg tablet ascorbic acid, vitamin C, (VITAMIN C) 250 mg tablet Take 500 mg by mouth. mv-min/folic/vit K/lycop/coQ10 (DAILY MULTIVITAMIN ORAL) Take by mouth. ibuprofen (MOTRIN) 200 mg tablet Take by mouth. SUMAtriptan (IMITREX) 100 mg tablet Take by mouth. FAMILY HISTORY Problem Relation Age of Onset Heart Father Diabetes Paternal Grandmother Social History Tobacco Use Smoking status: Never Smokeless tobacco: Never Substance Use Topics Alcohol use: No Drug use: No ROS Objective Blood pressure 122/78, pulse 86, temperature 36.8 C (98.2 F), resp. rate 18, weight 61.1 kg (134 lb 11.2 oz), last menstrual period 01/01/2006, SpO2 99%. Physical Exam Constitutional: General: She is not in acute distress. Appearance: She is not toxic-appearing or diaphoretic. HENT: Head: Normocephalic and atraumatic. Pulmonary: Effort: Pulmonary effort is normal. No accessory muscle usage or respiratory distress. Musculoskeletal: Feet: Neurological: Mental Status: She is alert and oriented to person, place, and time. ASSESSMENT/PLAN: 1. Rash - ICD9: 782.1, ICD10: R21 Fungal suspected -use medication as prescribed -follow up if symptoms persist, worsen, change - TERBINAFINE HCL 1 % TOPICAL CREAM Sunil De Leon APRN.SPIN[employer]ING [employer]HE OPERATOR [employer] documented in this encounter [facility] 09-22-2023 Telephone encounter Note Last ov- 08/25/23 Next ov- 08/11/24 [facility] 09-22-2023 Miscellaneous Notes Last ov- 08/25/23 Next ov- 08/11/24 documented in this encounter [facility] 08-25-2023 History of Presen t illness Narrative Images from the original note were not included. [facility] [address] [facility] [address] [facility] [address] Dept: [phone] Dept Loc: [phone] Visit type: Established Patient Reason for Visit: Follow-up and Seizures Assessment and Plan 1. Focal epilepsy (CMS/HCC) (HCC) 2. Dandy Walker cyst (HCC) Subjective HPI: She denies seizures or headaches. She is tolerating the topiramate. She reports that it has been years since she had a seizure. No symptoms to sugggest increased CSF fluid. REVIEW OF SYSTEMS: Review of Systems Constitutional: Negative for appetite change, chills, diaphoresis, fever and unexpected weight change. HENT: Negative for dental problem and mouth sores. Eyes: Negative for discharge and itching. Respiratory: Negative for chest tightness. Cardiovascular: Negative for chest pain and leg swelling. Gastrointestinal: Negative for rectal pain and vomiting. Endocrine: Negative for polydipsia, polyphagia and polyuria. Genitourinary: Negative for decreased urine volume, flank pain and genital sores. Musculoskeletal: Negative for arthralgias. Skin: Negative for color change. Allergic/Immunologic: Negative for food allergies and immunocompromised state. Neurological: Negative for seizures. Hematological: Negative for adenopathy. Does not bruise/bleed easily. Psychiatric/Behavioral: Negative for agitation, behavioral problems, decreased concentration, sleep disturbance and suicidal ideas. No Known Allergies Current Outpatient Medications: topiramate (Topamax) 100 MG tablet, , Disp: , Rfl: Past Medical History: Diagnosis Date Dandy Walker cyst (HCC) Frozen shoulder Headache Seizures (HCC) Social History Tobacco Use Smoking status: Never Smokeless tobacco: Never Substance Use Topics Alcohol use: Not Currently Past Surgical History: Procedure Laterality Date BUNIONECTOMY No family history on file. Objective Vitals: BP 132/85 (BP Location: Right arm) Pulse 62 Wt 134 lb (60.8 kg) BMI 23.00 kg/m General Appearance: Patient is in no apparent distress. Head is normocephalic, atraumatic Cardiovascular: Regular rate and rhythm. No heart murmurs. No carotid bruit Neurologic: Mentation: Alert and oriented x 3 to person, place and time. Speech and Language: Speech and language normal Concentration and Attention: Concentration normal Memory: Memory normal Fund of Knowledge: Fund of knowledge normal Cranial Nerves: II, III, IV, V, , VII, VIII, IX, X, XI, XII examined and were intact. Motor: Strength: Strength 5 out of 5 with normal tone Alternating Movements: Normal Cogwheel Rigidity: None Tone: Tone is normal Tremor / Involuntary Movements: None Coordination: Normal coordination upper and lower extremities Gait and Station: Station is normal. Gait is normal Data Reviewed and Summarized DIAGNOSTIC TESTING CBC: No results found for: WBC, RBC, HGB, HCT, MCV, MCH, MCHC, RDW, PLT, MPV CMP: No results found for: NA, K, CL, CO2, BUN, CREATININE, AGRATIO, LABGLOM, GLUCOSE, GLU, PROT, CALCIUM, BILITOT, ALKPHOS, AST, ALT BMP: No results found for: NA, K, CL, CO2, BUN, CREATININE, CALCIUM, LABGLOM, GLUCOSE, GLU PT/INR: No results found for: PROTIME, INR PTT: No results found for: APTT, PTT[APTT} FLP: No results found for: CHLPL, TRIG, HDL, LDLCALC, LDLDIRECT TSH: No results found for: TSH VITAMIN B12: No results found for: [id number] No results found for: PHENYTOIN, PHENOBARB, VALPROATE, CBMZ No components found for: TOPIRA @RESULTINGLABINFO@ No results found for: LEVETIRACETA, FERRITIN, CRP, MITRA, ANCA No results found for: BRANDON, IMMUNOGLOBUL, OLIGOBANDS No results found for: [id number], HEPCAB No results found for: CRP, ANATITER, ANCA, ANCA FERRITIN: No results found for: FERRITIN ---- No image results found. IMPRESSION and PLAN: Diagnosis Plan 1. Focal epilepsy (CMS/HCC) (HCC) 2. Dandy Walker cyst (HCC) No seizures for years. She needs to get a topiramate level and CMP in the future, but she can do that when she gets her routine labs for her PCP. No signs of issues from this. JAZZMINE CHRISTENSEN MD I spent 30 minutes caring for this patient today, reviewing labs, records, seeing the patient, documenting in the record and arranging for studies. documented in this encounter [facility] 04-09-2023 Instructions Sona Acevedo PA-C - 04/09/2023 7:49 PM EDT Plain mucinex (guaifenesin) otc may help thin rattling in chest. If not better in 1 week see PCP. documented in this encounter [facility] 04-09-2023 History of Presen t illness Narrative This note was created using [employer]. Subjective Aarti Conner is a 57 year old female. HPI Patient presents with cough over the past 3 weeks. She states she had a cold initially with congestion but that seems to have resolved other than the cough. She states she feels a rattling in her chest like she needs to cough something up but nothing comes up. She does not take any [id number] medications as she was told by her neurologist that they will interact with the Topamax she is taking. She will try Lilly or Claritin [id number] sometimes. No fever. She was having some tightness in the front of her chest and back as well so came in for evaluation. She is not a smoker. No history of asthma or COPD. Review of Systems HENT: Negative. Respiratory: Positive for cough and chest tightness. Negative for shortness of breath and wheezing. Cardiovascular: Negative. Gastrointestinal: Negative. Genitourinary: Negative. Musculoskeletal: Negative. All other systems reviewed and are negative. PAST MEDICAL HISTORY Diagnosis Date Migraine with aura, without mention of intractable migraine without mention of status migrainosus Current Outpatient Medications Medication Sig Dispense Refill topiramate (TOPAMAX) 100 mg tablet ascorbic acid, vitamin C, (VITAMIN C) 250 mg tablet Take 500 mg by mouth. mv-min/folic/vit K/lycop/coQ10 (DAILY MULTIVITAMIN ORAL) Take by mouth. ibuprofen (MOTRIN) 200 mg tablet Take by mouth. SUMAtriptan (IMITREX) 100 mg tablet Take by mouth. No current facility-administered medications for this visit. No past surgical history on file. FAMILY HISTORY Problem Relation Age of Onset Heart Father Diabetes Paternal Grandmother Social History Tobacco Use Smoking status: Never Smokeless tobacco: Never Substance Use Topics Alcohol use: No Drug use: No Objective BP 152/96 Pulse 65 Temp 36.7 C (98.1 F) Resp 16 Wt 61.9 kg (136 lb 6.4 oz) LMP 01/01/2006 SpO2 98% Physical Exam Vitals reviewed. Constitutional: Appearance: Normal appearance. HENT: Head: Normocephalic and atraumatic. Right Ear: Tympanic membrane, ear canal and external ear normal. Left Ear: Tympanic membrane, ear canal and external ear normal. Nose: Nose normal. Mouth/Throat: Mouth: Mucous membranes are moist. Pharynx: Oropharynx is clear. Cardiovascular: Rate and Rhythm: Normal rate and regular rhythm. Heart sounds: Normal heart sounds. Pulmonary: Effort: Pulmonary effort is normal. Breath sounds: Normal breath sounds. Musculoskeletal: Cervical back: Neck supple. Skin: General: Skin is warm and dry. Findings: No rash. Neurological: Mental Status: She is alert. Assessment and Plan ASSESSMENT/PLAN: 1. Acute cough - ICD9: 786.2, ICD10: R05.1 Chest x-ray clear. Likely viral bronchitis. She has prior calcified granuloma noted that I did make her aware of. Discussed trying plain Mucinex [id number]. Offered albuterol inhaler, patient declined. Not improving over the next week follow-up with PCP. Patient agreeable. Repeat blood pressure is improved from initial here as well. - XR CHEST 2V FRONTAL/LAT Sona Acevedo PA-C documented in this encounter [facility] 11-26-2022 History of Presen t illness Narrative Images from the original note were not included. Subjective HPI HPI Aarti Conner is a 57 year old female who presents today for CC of right mid back/rib pain. This started 2 days ago without injury. Symptoms are worsened by rom/deep breathing. Denies uri/cough. Denies hx of renal stones. Denies urinary urgency/frequency/burning/blood. .Patient presents with: lower right back pain: X 2 days-cannot recall an injury PAST MEDICAL HISTORY Diagnosis Date Migraine with aura, without mention of intractable migraine without mention of status migrainosus No past surgical history on file. ALLERGIES Patient has no known allergies. MEDICATIONS topiramate (TOPAMAX) 100 mg tablet ascorbic acid, vitamin C, (VITAMIN C) 250 mg tablet Take 500 mg by mouth. mv-min/folic/vit K/lycop/coQ10 (DAILY MULTIVITAMIN ORAL) Take by mouth. ibuprofen (MOTRIN) 200 mg tablet Take by mouth. SUMAtriptan (IMITREX) 100 mg tablet Take by mouth. FAMILY HISTORY Problem Relation Age of Onset Heart Father Diabetes Paternal Grandmother Social History Tobacco Use Smoking status: Never Smokeless tobacco: Never Substance Use Topics Alcohol use: No Drug use: No ROS Objective Blood pressure 144/86, pulse 60, temperature 36.6 C (97.8 F), temperature source Tympanic, resp. rate 18, weight 61.9 kg (136 lb 6.4 oz), last menstrual period 01/01/2006, SpO2 99 %. Physical Exam Constitutional: General: She is not in acute distress. Appearance: She is not toxic-appearing or diaphoretic. HENT: Head: Normocephalic and atraumatic. Cardiovascular: Rate and Rhythm: Normal rate and regular rhythm. Heart sounds: Normal heart sounds, S1 normal and S2 normal. Pulmonary: Effort: Pulmonary effort is normal. Breath sounds: Normal breath sounds. Abdominal: Palpations: Abdomen is soft. Tenderness: There is no abdominal tenderness. There is no right CVA tenderness or left CVA tenderness. Neurological: Mental Status: She is alert and oriented to person, place, and time. Gait: Gait is intact. ASSESSMENT/PLAN: 1. Rib pain on right side - ICD9: 786.50, ICD10: R07.81 (primary diagnosis) No pneumonia or rib injury on xray Otc management discussed pain relief Urgent f/u for severe/worsening s/s. - XR RIBS/CHEST 3V AP RIB/OBLS/CXR RIGHT IMPRESSION: 1, No displaced rib fracture seen. 2. acute cardiopulmonary abnormalities. 3. Evidence of old granulomatous disease in the right lung. 4. Relative hyperaeration, possibly strong inspiration. Clinical correlation suggested to exclude COPD. Dictated by : GHADA DODSON MD 2. Acute midline low back pain without sciatica - ICD9: 724.2, ICD10: M54.50 Possible renal stone, nontoxic appearance today. Push fluids and f/u with pcp. Urgent f/u for worsening s/s. - UA DIP, URINE (POC)-blood on ua, will send culture. - URINE CULTURE Sunil De Leon APRN.CNP documented in this encounter [facility] Evaluation note No assessment inform ation available [facility] Work Phone: Evaluation note Diagnosis Rib pain on right side- Primary Chest pain, unspecified Acute midline low back pain without sciatica documented in this encounter [facility] note* Diagnosis Acute cough- Primary documented in this encounter [facility] note* Diagnosis Focal epilepsy (CMS/HCC) (HCC)- Primary Dandy Walker cyst (HCC) Congenital hydrocephalus documented in this encounter [facility] note* Diagnosis Rash- Primary Rash and other nonspecific skin eruption documented in this encounter [facility] note* Diagnosis Focal epilepsy (CMS/HCC) (HCC)- Primary Migraine without aura and without status migrainosus, not intractable documented in this encounter [facility] note* Diagnosis Acute cough documented in this encounter [facility] note* Diagnosis URI, acute- Primary Acute upper respiratory infections of unspecified site documented in this encounter [facility] note* Diagnosis Acute cough- Primary Acute cough documented in this encounter [facility] note* Diagnosis Acute cough documented in this encounter [facility] note* Diagnosis Focal epilepsy (CMS/HCC) (HCC)- Primary Migraine without aura and without status migrainosus, not intractable documented in this encounter [facility] for referral (narrative)* Diagnostic Procedure Only (Urgent) - Closed Specialty Diagnoses / Procedures Referred By Stefanie miranda Referred To Contact XR IMAGING Diagnoses Rib pain on right side Procedures XR RIBS/CHEST 3V AP RIB/OBLS/CXR RIGHT RADEX RIBS UNI W/POSTEROANT CH MINIMUM 3 VIEWS Sunil De Leon APRN.CNP [address] [place] [address] Xr Imaging Referral ID Status Reason Start Date Expiration Date V isits Requested Visits Authorized [id number] Closed Auto-Generate d Referral 11/26/2022 12/26/2023 1 1 [facility] Diagnostic Procedure Only (Urgent) - Closed Specialty Diagnoses / Procedures Referred By Contac t Referred To Contact XR IMAGING Diagnoses Rib pain on right side Procedures XR RIBS/CHEST 3V AP RIB/OBLS/CXR RIGHT RADEX RIBS UNI W/POSTEROANT CH MINIMUM 3 VIEWS Sunil De Leon APRN.[employer]IN[employer] [address] [place] [place] [address] [place] [address] Referral ID Status Reason Start Date Expiration Date V isits Requested Visits Authorized [id number] Closed Auto-Generate d Referral 11/26/2022 12/26/2023 1 1 [facility] Chief Complaint and Reason for Visit Chief Complaint LLE PAIN Advance Directives No Advanced Directives Records Found Advance Directive Response Recorded Date/ Time Living Will No September 07 10:38pm Power of Activity Aide No September 07, 018 10:38pm Advance Directive Response Recorded Date/ Time Living Will No September 07 9:38pm Power of Activity Aide No September 07, 018 9:38pm Summary Purpose Family History No Family History Records Found Additional Source Comments Goals (unrecognized section and content) Goals may be documented in a n alternate sectionGoals may be documented in an alternate sectionGoals may be documented in an alternate section Source Comments (unrecognize d section and content) In the event this informatio n is protected by the Federal Confidentiality of Alcohol and Drug Abuse Patient Records regulations: The Federal rules restrict any use of the information to criminally investigate or prosecute any alcohol or drug abuse patient.[facility] the event this information is protected by the Federal Confidentiality of Alcohol and Drug Abuse Patient Records regulations: The Federal rules restrict any use of the information to criminally investigate or prosecute any alcohol or drug abuse patient.[facility] the event this information is protected by the Federal Confidentiality of Alcohol and Drug Abuse Patient Records regulations: The Federal rules restrict any use of the information to criminally investigate or prosecute any alcohol or drug abuse patient.[facility] the event this information is protected by the Federal Confidentiality of Alcohol and Drug Abuse Patient Records regulations: The Federal rules restrict any use of the information to criminally investigate or prosecute any alcohol or drug abuse patient.[facility] the event this information is protected by the Federal Confidentiality of Alcohol and Drug Abuse Patient Records regulations: The Federal rules restrict any use of the information to criminally investigate or prosecute any alcohol or drug abuse patient.[facility] the event this information is protected by the Federal Confidentiality of Alcohol and Drug Abuse Patient Records regulations: The Federal rules restrict any use of the information to criminally investigate or prosecute any alcohol or drug abuse patient.[facility] the event this information is protected by the Federal Confidentiality of Alcohol and Drug Abuse Patient Records regulations: The Federal rules restrict any use of the information to criminally investigate or prosecute any alcohol or drug abuse patient.[facility] the event this information is protected by the Federal Confidentiality of Alcohol and Drug Abuse Patient Records regulations: The Federal rules restrict any use of the information to criminally investigate or prosecute any alcohol or drug abuse patient.[facility] the event this information is protected by the Federal Confidentiality of Alcohol and Drug Abuse Patient Records regulations: The Federal rules restrict any use of the information to criminally investigate or prosecute any alcohol or drug abuse patient.[facility] Reason for Visit (unrecogniz ed section and content) Reason Comments lower right back pain X 2 days-cannot re call an injury Reason Comments Cough Chest congestion x 3 weeks Reason Comments Follow-up Seizures Reason Comments Med Refill Reason Comments Rash itching and redness on left foot x end of may Reason Comments Cough Chills, fever, bodya ches, nausea, BARTON x3 days Reason Comments Cough Chest congestion and tightness x1 month, Covid over Easter weekend Reason Onset Date Comments Forms/questionnaires 04/19/2025 [facility] ans Statement Care Teams (unrecognized sec tion and content) Oil Distributor Tender Relationship Specialty Start Date End Date Ginna Santiago PCP - General 06/15/22 12/31/22 [employer] Distributor Tender Relationship Specialty Start Date End Date Shyanne Chavez [address] [place] [phone] PCP - General 07/05/20 Oil Distributor Tender Relationship Specialty Start Date End Date Shyanne Chavez [address] [place] [phone] PCP - General 07/05/20 Team Status: Active Member Role Status Dates Dr. Shyanne Chavez MD Family Provider Active Dr. Shyanne Chavez MD Primary Care Provider Active Team Status: Inactive Member Role Status Dates Dr. Shyanne Chavez MD Primary Care Provider Active Dr. Jazzmine Christensen MD Attending Provider, Referring Pro vider Active Team Status: Inactive Member Role Status Dates Dr. 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 Start Date End Date Shyanne Chavez [address] [place] [address] PCP - General Family Medicine 03/22/25 04/11/25 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 This clinical summary was aggregated from multiple sources. Caution should be exercised in using it in the provision of clinical care. This summary normalizes information from multiple sources, and as a consequence, information in this document may materially change the coding, format and clinical context of patient data. In addition, data may be omitted in some cases. CLINICAL DECISIONS SHOULD BE BASED ON THE PRIMARY CLINICAL RECORDS. [employer] [facility]. provides no warranty or guarantee of the accuracy or completeness of information in this document.
--- NOTE | 2025-10-24 17:06 | CA.SCORE ---
Calcium Scoring Date of Study:: 10/24/25 Indications Indications: FH Coronary Calcium Scoring: High-resolution Computed Tomographic imaging of the chest was performed on [10/24/25 ], with particular attention paid to the coronary arteries. Images from the examination were analyzed for the presence and extent of coronary artery calcification , using coronary calcium quantification software. The patient tolerated the procedure well and there were no complications. The results of the coronary calcification analysis are provided below. Findings Coronary Artery Left Main (LM): 0 Left Anterior Descending (LAD): 9.74 Left Circumflex (LCX): 0 Right Coronary Artery (RCA): 0 Total Agatston Score: 9.74 Percentile Rankin-75 Calcium Scoring Interpretation: Different methods to categorize the overall amount of coronary plaque. Overall amount CAC SIS Visual of coronary plaque P1 Mild -100 <2 1-2 vessels with mild amount of plaque P2 Moderate 101-300 3-4 1-2 vessels with moderate amount, 3 vessels with mild amount of plaque P3 Severe 301-999 5-7 3 vessels with moderate amount, 1 vessel with severe amount of plaque P4 Extensive >1000 >8 2-3 vessels with severe amount of plaque Conclusion: Focal plaque noted in the LAD.
== END | disposition home or self-care (01) ==
LOC: CT 06:52
PROVIDERS: PCP Family Medicine; Referring Provider Nurse Practitioner Family; Visit Provider Nurse Practitioner Family
DX: E78.5 Hyperlipidemia, unspecified (principal)
CPT/HCPCS: 75571; 76380